=== PATIENT | male | born 1995 | race Caucasian/White ===

== ENCOUNTER 2024-12-08 10:44 | Outpatient (AMB) | payer BC, SELFPAY ==
[2024-12-08 10:47] VITALS: BMI 23.2
--- NOTE | 2024-12-08 10:47 | A.SPINEOV_ITS ---
Vital Signs 12/08/24 10:47 Height 6 ft 1.5 in Weight 178 lb BMI 23.2 Intake Visit Reasons: Bulging disc L5-S1 Intake Note: Mr. Alvarez is here today c/o Low back pain. 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 The symptoms originally started last year on September and October. At that time he was leaning back to crack his back and felt something pop. For few days after he was unable to get out of bed. He started experiencing pain shooting down his left leg as well. He underwent some physical therapy for 3 months and ultimately things seemed to improve somewhat. 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 Along the way, he did have an MRI in July of this year showing a herniated disc on the left at L5-S1. He also had tried a cortisone injection at 1 point which seemed to help the symptoms for 3 weeks. About a month and a half ago, he noticed an abrupt change in the symptoms. Specifically he noticed an increase in the intensity of the pain as well as more tingling of his foot and inability to stand up straight and walk. He has been in excruciating pain over the last month. He has been on gabapentin, tramadol, a leave. He had seen a neurosurgeon and [place] who was recommending microdiskectomy. He wanted to come to our office given our minimally invasive approach to surgical intervention and see if we had any other thoughts on his situation. PMH: He had a lung infection last year which they thought may have been attributed to a trip overseas to [place], he was on antibiotics and that resolved on its own. He has history of anxiety, depression, ADHD. He had elbow surgery for fracture 15 years ago. Other than that he has no systemic disease. Social hx: He quit vaping a few weeks ago, he does smoke marijuana in the evenings, is a social drinker Medications: Vyvanse, Wellbutrin, vitamin-C, vitamin-D, gabapentin, tramadol, Aleve and Advil Allergies: None Physical exam: He is unable to stand up straight, when I watch him walk in the hallway he has an antalgic gait and leans to the left. He has a flexed posture. He is unable to sit for any length of time secondary to pain. He has to lay down flat on his back to relieve the discomfort. He has full strength of bilateral lower extremities but absent reflex in the left Achilles. Imaging review: There is an lumbar MRI image from July of this year done at [facility] showing a small to medium size bulging disc on the left at L5-S1. Impression: 29-year-old male presents with on and off symptoms of a left lumbar radiculopathy over the last year or more consistent with the imaging done at [facility] showing a bulging disc on the left at L5-S1. He was treating that conservatively and had seen some success, but the last month and a half he has had in his significant increase in the pain. He has an absent Achilles reflex in his unable to stand up and walk straight, he has a positive straight leg raise at about 20 degrees. I am concerned that he has herniated the disc further. Because this is a surgical discussion, we need to have a clear understanding of the anatomy and if it has changed since the MRI in July. I am going to order a new lumbar MRI to re-evaluate. We did discuss the natural history of disc herniations, and surgical intervention including microdiskectomy. We discussed success rates which I quoted as 90%. He understands he will be on lifting restrictions for 6 weeks if he has surgery. Once the new MRIs completed I will review with Dr. Mackey and we can coordinate a final plan for him. Thank you for allowing us to care for your patient. The total time spent with this visit with this patient was 45 minutes reviewing history, physical exam, lumbar imaging review, and implementation of treatment plan or further diagnostic testing Jose Mackey MD,PhD [facility] Orders: Orders MR lumbar spine wo con Today M51.26 - Other intervertebral disc displacement, lumbar region Coding Level of Care Code New Pt Level 4 (97858) Diagnoses Lumbar disc herniation M51.26
--- OUTSIDE RECORDS SUMMARY | 2024-12-08 11:44 | XMS_ITS | Clinical Summary ---
Author Organization [facility] Address [address] [place] [address] Care Team Providers Care Personal Driver Name Role Phone Rudy Cui MD Primary Care Provider [phone] Allergies Active Allergy Reactions Criticality Noted Date Comments Coconut Hives 10/16/2023 Medications * This document contains information received from the source organization and may not represent a complete record from that organization. buPROPion XL (WELLBUTRIN XL) 300 mg tablet Take 1 tablet by mouth daily. Active buPROPion XL (WELLBUTRIN XL) 150 mg tablet Take 1 tablet by mouth daily. Active dextroamphetami ne-amphetamine XR (ADDERALL XR) 20 mg capsule Take 20 mg by mouth every morning. Active dextroamphetami ne-amphetamine (ADDERALL) 10 mg tablet Take 10 mg by mouth once a day. Active cloNIDine (CATAPRES) 0.1 mg tablet Take 0.1 mg by mouth once daily as needed. 09/13/2023 Active ascorbic acid (VITAMIN C) 500 mg tablet Take 500 mg by mouth daily. Active albuterol (PROAIR HFA,VENTOLIN HFA) 90 mcg inhaler Inhale 2 puffs by mouth every 4 hours as needed. 09/28/2023 Active b complex vitamins tablet Take 1 capsule by mouth daily. 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 Sex and Gender Information Value Date Recorded Sex Assigned at Male 10/16/2023 9:51 AM EDT Legal Sex Male 4:38 AM EDT Gender Identity Male 10/16/2023 9:51 AM EDT Sexual Orientation Straight 10/16/2023 9: 51 AM EDT Last Filed Vital Signs Vital Sign Reading Time Taken Comments Blood Pressure 117/69 11/13/2023 2:57 PM EDT Pulse 70 11/13/2023 2:57 PM EDT Temperature 36.7 C (98.1 F) 11/13/2023 2:57 PM EDT Respiratory Rate 16 11/13/2023 2:57 PM EDT Oxygen Saturation 97% 11/13/2023 2:57 PM EDT Inhaled Oxygen Concentration - - Weight 80 kg (176 lb 6.4 oz) 11/13/2023 2:57 PM EDT Height 185.4 cm (6' 1 ) 10/16/2023 1:32 PM EDT Body Mass Index 23.27 10/16/2023 1:32 PM EDT Plan of Treatment Health Maintenance Due Date Last Done Comments HIV Screening 1997 Hepatitis C Screening 1997 COVID-19 Vaccine ( season) 2023 04/13/2021, 09/10/2020, 08/13/2020 Alcohol/Substance Use Screening 04/23/2024 Depression Screening and Follow-Up 04/23/2024 Social Drivers of Health Annual Screening 04/23/2024 Influenza Vaccine (#1) 2024 4, 05/08/2012, 03/21/2011, Additional history exists DTaP,Tdap,and Td Vaccines (7 - Td or Tdap) 12/25/2028 12/25/2018, 02/26/2008, 06/18/2001, Additional history exists RSV Vaccine (60+ years old and patients) (1 - 1-dose 75+ series) 01/20/2072 Hepatitis B Vaccines Completed 1997, 1997, 1997 Pneumococcal Vaccine: Pediatric (0-5 Years) and At-Risk Patients (6-50 Years) Aged Out 06/18/2001 No longer eligible based on patient's age to complete this topic Varicella Vaccines Completed 02/26/2008, 06/28/1998 Insurance TB/[facility] HSNO/FREE CARE [facility] HMO/POS Care Teams Personal Driver Relationship Specialty Start Date End Date Rudy Cui MD [address] [place] [phone] PCP - General Internal Medicine 10/15/23
--- OUTSIDE RECORDS SUMMARY | 2024-12-08 11:44 | XMS_ITS | Encounter Summary ---
Author Organization [facility] Address [address] [place] [address] Care Team Providers Care Food Safety Field Specialist Name Role Phone Gonzalo Purcell MD Primary Care Provider Gonzalo Joyner MD Primary Care Provider Shawn Diaz MD Primary Care Provider Unavailab Alex Meza DO Primary Care Provider [phone] Shawn Shin MD Primary Care Provider Unavailab Curtis Daily MD Primary Care Provider [phone] Rudy Cui MD Primary Care Provider [phone] Reason for Referral * CONSULT AND TREATMENT (Routine) - Pend Nurse Review Specialty Diagnoses / Procedures Referred By Contantonina t Referred To Contact Neurology Diagnoses Tremors of nervous system Procedures JULY MELENDEZ NPI : [id number] Gonzalo Purcell MD Sadasivan, Suja, MD [facility] [address] [place] [address] Phone: tel: fax: Referral ID Status Reason Start Date Expiration Date Visits Requested Visits Authorized [id number] Pend Nurse Review Pedi Specialty 07/23/2017 07/23/2017 3 3 Question Answer When do you want this visit to occur? RETRO REFERRAL - appt- 07/23/17 Patient is being referred outside of [facility] for the following reason, however final determination for [id number] requests are made by the Referral Management Department Continuity of active patient care Track Order? No Please provide pertinent patient history. Tremors- pt has not seen Dr. purcell for 2 years- FYi Where is patient being referred? If NOT Other , it qualifies for Meaningful Use, but first look at comment to right to determine if you need to print and have patient sign Release of Info Electronically Letter Other or Decline - Consent is signed Which provider/facility/agency would you like to refer to? count includes the [facility] neuroscience services- [address] [place], [place] tel- [phone] f- Please list the patient's preferred provider for this consult. July Melendez- npi- [phone] Encounter Details Date Type Department Care Team (Late st Contact Info) Description 09/24/2017 Orders Only [facility] [address] [place] [address] Gonzalo Purcell MD Social History Tobacco Use Types Packs/Day Years Used Date Smoking Tobacco: Never Alcohol Use Standard Drinks/Week Comments Not Asked 0 (1 standard drink = 0.6 oz pur e alcohol) Sex and Gender Information Value Date Recorded Sex Assigned at Male 09/03/2023 12:02 PM EDT Legal Sex Male 5:12 AM EDT Gender Identity Male 09/03/2023 12:02 PM EDT Sexual Orientation Straight 09/07/2023 2: 01 PM EDT documented as of this encounter Plan of Treatment Upcoming Encounters Date Type Department Care Team (Latest Contact Info) Description 12/17/2024 10:00 AM EDT Office Visit [facility] [address] [address] Cameron Choudhury NP [address] [address] LBP 6 wk l/s 11/0412/18/2024 1:30 PM EDT Office Visit [facility] [address] 123 [facility] [address] [place] [address] Michael Fulton MD [address] [place] [address] f/u back pain..l/s 5.6.25..inj verbiage advised 07/29/2025 11:20 AM EDT CPE - Comprehensive Physical Exam [facility] Medicine [address] [place] [phone] Eunice Wilson, LEXIE [address] [place] [address] las cpe 10/18/21 Scheduled Referrals Name Type Priority Associated Diagnoses Orde r Schedule CONSULT NEUROLOGY NON-FC Referral Routine Tremors of nervous system Ordered: 09/24/2017 documented as of this encounter Visit Diagnoses Diagnosis Tremors of nervous system Abnormal involuntary movements documented in this encounter Care Teams Food Safety Field Specialist Relationship Specialty Start Date End Date Gonzalo Purcell MD PCP - General 07/15/05 09/24/17 Gonzalo Purcell MD PCP - General Pediatrics 09/27/17 09/27/17 Shawn Shin MD PCP - General Internal Medicine 12/28/17 10/08/18 Alex Bui DO PCP - General 10/09/18 11/25/18 Shawn Shin MD PCP - General Internal Medicine 11/26/18 03/22/22 Curtis Godinez MD [address] [place] [address] PCP - General 03/23/22 09/02/23 Rudy Cui MD [address] [place] [phone] PCP - General Internal Medicine 09/03/23 documented as of this encounter
--- OUTSIDE RECORDS SUMMARY | 2024-12-08 11:44 | XMS_ITS | Patient Health Record ---
Author Organization [facility] [employer] [facility] Address [address] [address] Care Team Providers Care Products Mechanical Design Engineer Name Role Phone Ailyn Gonzalo Primary Care Provider Unavailab luci FelixGAGE Unavailable [phone] Juan Francisco Natarajan Unavailable Unavailable Reason For Referral No Information Medications Medication SIG (Take, Route, Frequency, Duration) Notes Start Date End Date Status Azithromycin 250 MG 2 tablets on the day, then 1 tablet daily thereafter Orally Once a day Active buPROPion HCl ER (XL) 150 MG 1 tablet in the morning Orally Once a day Active Albuterol Sulfate HFA 108 (90 Base) MCG/ACT 2 puffs as needed Inhalation every 6 hrs Active buPROPion HCl ER (XL) 300 MG 1 tablet in the morning Orally Once a day Active Social History Tobacco Use: Social History Observation Description Date Details (start date - stop date) Never Smoker NA - NA Tobacco Use/Smoking Question Answer Notes Are you a nonsmoker Problems Problem Type SNOMED Code ICD Code Onset Dates Problem Status W/U Status Risk Notes Problem Anxiety (37766415) Anxiety (F41.9) Active confirmed Problem Tremor (74513509) Tremor (R25.1) Active confirmed Problem Generalized anxiety disorder (61353457) JOSUE (generalized anxiety disorder) (F41.1) Active confirmed Problem Recurrent major depression (95185601) Recurrent major depressive disorder, remission status unspecified (F33.9) Active confirmed Problem Tension-type headache (726719213) Tension-type headache, not intractable, unspecified chronicity pattern (G44.209) Active confirmed Plan Of Treatment No Information Insurance Providers Payer Name Payer Address Payer Phone Subscriber Number Group Number Insured Name Patient Relationship to Insured Coverage Start Date Coverage End Date [facility] [address] [place] [address] [id number] Yoshi Locke Self - patient is the insured Medical (General) History Medical History History ICD Code Tension-type headache, not intractable, unspecified chronicity pattern JOSUE (generalized anxiety disorder) Recurrent major depressive disorder, rem ission status unspecified Recurrent major depressive disorder, rem ission status unspecified
== END 2024-12-08 11:44 | disposition home or self-care (01) ==
LOC: HO.HNS 10:44
PROVIDERS: Visit Provider Physician Assistant
DX: M51.26 Other intervertebral disc displacement, lumbar region (principal)
CPT/HCPCS: 99204

== ENCOUNTER 2024-12-26 09:33 | Outpatient (AMB) | payer BC, SELFPAY ==
[2024-12-26 10:01] VITALS: BMI 23.7
--- NOTE | 2024-12-26 10:01 | HO.SPINEOV ---
Vital Signs 12/26/24 10:01 Height 6 ft 1 in Weight 180 lb BMI 23.7 Intake Visit Reasons: surgical discussion Intake Note: Mr. Locke is here today to Discuss Surgery. Newspaper Subscription Solicitor Required: No Allergies coconut Allergy (Intermediate, Verified 12/08/24 10:48) Hives Physical Exam Vital Signs: BMI result Body Mass Index 23.7 Assessment & Plan Assessment & Plan (1) Lumbar disc herniation: Code(s): M51.26 - Other intervertebral disc displacement, lumbar region Category: Medical Plan Mr Locke is here in follow-up. His MRI done at [facility] shows that he has a recurrent larger disc herniation than the 1 previously seen on his studies done at [facility]. Dr. Mackey and I sat down with him and reviewed his situation again. He has severe left leg pain which is making him basically immobile, he is seeing some atrophy of his left calf, he has mild weakness in an Achilles reflexes absent. We believe that he is a good candidate for left L5-S1 microdiskectomy. We quoted success rate at 90%. We have tentatively planned in January 07. The patient was given risk and benefits of surgery including but not limited to infection, hematoma, nerve injury, durotomy, weakness, bowel/bladder injury, persistent pain, recurrent disc herniation. We also discussed the option to continue with conservative treatment and patient wishes to proceed with surgery. They are aware they should stop NSAIDs 7 days prior to surgery. All questions were answered to the best of our ability. If there is anything about this patients medical history that we have overlooked or concerns you have about us proceeding with surgery we would appreciate any input you can offer Total amount of time spent in this visit was 20 minutes in discussion of symptoms, lumbar MRI imaging results and subsequent plan of care Jose Mackey MD,PhD [facility] Coding Level of Care Code Est Pt Level 3 (62308) Diagnoses Lumbar disc herniation M51.26
--- OUTSIDE RECORDS SUMMARY | 2024-12-26 10:15 | XMS_ITS | Encounter Summary ---
Author Organization [facility] Address [address] [place] [address] Care Team Providers Care Remelt Sugar Boiler Name Role Phone Gonzalo Purcell MD Primary Care Provider Gonzalo Joyner MD Primary Care Provider Shawn Diaz MD Primary Care Provider Unavailab Alex Meza DO Primary Care Provider [phone] Shawn Shin MD Primary Care Provider Unavailab Curtis Daily MD Primary Care Provider [phone] Rudy Cui MD Primary Care Provider Reason for Referral * CONSULT AND TREATMENT (Routine) - Pend Nurse Review Specialty Diagnoses / Procedures Referred By Contantonina t Referred To Contact Neurology Diagnoses Tremors of nervous system Procedures JULY STOVER NPI : [id number] Gonzalo Purcell MD Sadasivan, Suja, MD [facility] [address] [place] [address] Phone: tel: fax: Referral ID Status Reason Start Date Expiration Date Visits Requested Visits Authorized [id number] Pend Nurse Review Pedi Specialty 07/23/2017 07/23/2017 3 3 Question Answer When do you want this visit to occur? RETRO REFERRAL - appt- 07/23/17 Patient is being referred outside of [facility] for the following reason, however final determination for [id number] requests are made by the Referral Management [...] provider/facility/agency would you like to refer to? [facility]- [address], [place] tel- [phone] f- [phone] Please list the patient's preferred provider for this consult. July Espinosatatyerika- npi- [id number] Encounter Details Date Type Department Care Team (Late st Contact Info) Description 09/24/2017 Orders Only [facility] [address] [place] [address] Gonzalo Purcell MD Social History Tobacco Use [...] Department Care Team (Latest Contact Info) Description 07/29/2025 11:20 AM EDT CPE - Comprehensive Physical Exam [facility] [address] [place] [phone] Eunice Wilson NP [address] [place] [address] pat cpe 10/18/21 Scheduled Referrals Name Type Priority Associated Diagnoses Orde r Schedule CONSULT NEUROLOGY NON-FC Referral Routine Tremors of nervous system Ordered: 09/24/2017 documented as of this encounter Visit Diagnoses Diagnosis Tremors of nervous system Abnormal involuntary movements documented in this encounter Care Teams Remelt Sugar Boiler Relationship Specialty Start Date End Date Gonzalo Purcell MD PCP - General 07/15/05 09/24/17 Gonzalo Purcell MD PCP - General Pediatrics 09/27/17 09/27/17 Shawn Shin MD PCP - General Internal Medicine 12/28/17 10/08/18 Alex Bui DO PCP - General 10/09/18 11/25/18 Shawn Shin MD PCP - General Internal Medicine 11/26/18 03/22/22 Curtis Godinez MD [address] [place] [address] PCP - General 03/23/22 09/02/23 Rudy Cui MD [address] [place] [phone] PCP - General Internal Medicine 09/03/23 documented as of this encounter
--- OUTSIDE RECORDS SUMMARY | 2024-12-26 10:15 | XMS_ITS | Encounter Summary ---
Author Organization [facility] Address [address] [place] [address] Care Team Providers Care Hand Ii Blocker Name Role Phone Shawn Shin MD Primary Care Provider Unavailab Alex Meza DO Primary Care Provider [phone] Shawn Shin MD Primary Care Provider Unavailab Curtis Daily MD Primary Care Provider [phone] Rudy Cui MD Primary Care Provider [phone] Reason for Visit * Reason Comments E-prescribing Refill Request Encounter Details Date Type Department Care Team (Late st Contact Info) Description 03/05/2018 Refill [facility] [address] [place] [address] Shawn Shin MD E-prescribing Refill Request Social History Tobacco Use Types Packs/Day Years Used Date Smoking Tobacco: Never Smokeless Tobacco: Never Alcohol Use Standard Drinks/Week Comments Not Asked 0 (1 standard drink = 0.6 oz pur e alcohol) Sex and Gender Information Value Date Recorded Sex Assigned at Male 09/03/2023 12:02 PM EDT Legal Sex Male 5:12 AM EDT Gender Identity Male 09/03/2023 12:02 PM EDT Sexual Orientation Straight 09/07/2023 2: 01 PM EDT documented as of this encounter Miscellaneous Notes * Telephone Encounter - Margaret Gilmore - 03/05/2018 9:23 AM EST Any special requests or concerns? none Faxed/E-prescribed medication renewal request(s) for Yoshi Locke 23 y.o. male received from pharmacy. Verified and Confirmed pharmacy for patient. Last CPE with this specialty: 06/24/2014 Last OV with this specialty: 02/04/2016 Next OV: Future Appointments Date Time Provider Department Phone 03/21/18 1:40 PM Shawn Shin MD [facility] [phone] Pertinent lab results: No labs suggested for any medication orders signed or pended in this encounter. Refresh if any orders changed. Allergies: Review of patient's allergies indicates no known allergies. BP Readings from Last 1 Encounters: 09/27/17 130/78 Patient Active Problem List Diagnosis Date Noted ??? Mononucleosis syndrome 09/18/2016 09/06/2016. Monospot positive. WBC 9.8 with 31% atypical lymphs. ??? Episodic tension-type headache, not intractable 02/20/2016 ??? Recurrent major depressive disorder (HCC) 02/04/2016 ??? JOSUE (generalized anxiety disorder) 06/24/2014 ??? Routine health maintenance 03/15/2010 Current Outpatient Prescriptions on File Prior to Visit Medication Sig Dispense Refill ??? BuPROPion HCl 300 MG TABLET SR 24 HR 1 TABLET DAILY in the morning 30 Tab 1 ??? BuPROPion HCl 150 MG TABLET SR 24 HR 1 TABLET DAILY in the morning 30 Tab 1 ??? ALBUTEROL SULFATE 108 (90 BASE) MCG/ACT Aero Soln 2 puffs every 4 hours as needed for cough/bronchospasm 1 Inhaler 0 ??? Azithromycin 250 MG Tab 2 Tablets today, then 1 tablet daily thereafter 6 Tab 0 ??? BuPROPion HCl 200 MG TABLET SR 12 HR 1 TABLET DAILY documented in this encounter Plan of Treatment Upcoming Encounters Date Type Department Care Team (Latest Contact Info) Description 07/29/2025 11:20 AM EDT CPE - Comprehensive Physical Exam [facility] [address] [place] [phone] Eunice Wilson NP [address] [place] [address] pat cpe 10/18/21 documented as of this encounter Visit Diagnoses Diagnosis Recurrent major depressive disorder, remission status unspecified JOSUE (generalized anxiety disorder) Generalized anxiety disorder documented in this encounter Care Teams Hand Ii Blocker Relationship Specialty Start Date End Date Shawn Shin MD PCP - General Internal Medicine 12/28/17 10/08/18 Alex Bui DO PCP - General 10/09/18 11/25/18 Shawn Shin MD PCP - General Internal Medicine 11/26/18 03/22/22 Curtis Godinez MD [address] [place] [address] PCP - General 03/23/22 09/02/23 Rudy uCi MD [address] [place] [phone] PCP - General Internal Medicine 09/03/23 documented as of this encounter
--- OUTSIDE RECORDS SUMMARY | 2024-12-26 10:15 | XMS_ITS | Clinical Summary ---
Author Organization [facility] Address [address] [place] [address] Care Team Providers Care Department Clinician Name Role Phone Rudy Cui MD Primary Care Provider [phone] Allergies Active Allergy Reactions Criticality Noted Date [...] HIV Screening 1997 Hepatitis C Screening 1997 Alcohol/Substance Use Screening 04/23/2024 Depression Screening and Follow-Up 04/23/2024 Social Drivers of Health Annual Screening 04/23/2024 COVID-19 Vaccine ( - season) 2024 04/13/2021, 09/10/2020, 08/13/2020 Influenza Vaccine (#1) 2024 4, 05/08/2012, 03/21/2011, [...] Completed 02/26/2008, 06/28/1998 Insurance TB/[place] HSNO/FREE CARE [facility] HMO/POS Care Teams Department Clinician Relationship Specialty Start Date End Date Rudy Cui MD [address] [place] [phone] PCP - General Internal Medicine 10/15/23
--- OUTSIDE RECORDS SUMMARY | 2024-12-26 10:15 | XMS_ITS | Encounter Summary ---
Author Organization [facility] Address [address] [place] [address] Care Team Providers Care Foam Rubber Curer Name Role Phone Gonzalo Robertson MD Primary Care Provider Gonzalo Joyner MD Primary Care Provider Shawn Diaz MD Primary Care Provider Unavailab Alex Meza DO Primary Care Provider [phone] Shawn Shin MD Primary Care Provider Unavailab Curtis Daily MD Primary Care Provider [phone] Rudy Cui MD Primary Care Provider [phone] Reason for Visit * Reason Comments Unable To Schedule Encounter Details Date Type Department Care Team ([facility] st Contact Info) Description 03/29/2016 Telephone 300 [facility] Magnetic Resonance Imaging [address] [place] [address] Tana Jackson, LEXIE [address] [facility] [address] [place], [place] [phone] Unable To Schedule Social History Tobacco Use Types Packs/Day Years [...] encounter Miscellaneous Notes * Telephone Encounter - Dee Snyder - 03/29/2016 1:18 PM EST This is to inform you that we have been unable to reach this patient to schedule his appointment for a mra head to evaluate for Pt with headaches, often w/ confusion. We have made attempts to schedule this patient by PHONE. We are asking for your assistance in contacting this patient to ensure their exam is scheduled in a timely fashion. Thank you, Radiology Scheduling Dept. documented in this encounter Plan of Treatment Upcoming Encounters Date Type Department Care Team (Latest Contact Info) Description 07/29/2025 11:20 AM EDT CPE - Comprehensive Physical Exam [facility] Adult Medicine [address] [place] [phone] Eunice Wilson NP [address] [place] [phone] las cpe 10/18/21 documented as of this encounter Visit Diagnoses Not on filedocumented in this encounter Care Teams Foam Rubber Curer Relationship Specialty Start Date End Date Gonzalo Robertson MD PCP - General 07/15/05 09/24/17 Gonzalo Robertson MD PCP - General Pediatrics 09/27/17 09/27/17 Shawn Shin MD PCP - General Internal Medicine 12/28/17 10/08/18 Alex Bui DO PCP - General 10/09/18 11/25/18 Shawn Shin MD PCP - General Internal Medicine 11/26/18 03/22/22 Curtis Godinez MD [address] [place] [address] PCP - General 03/23/22 09/02/23 Rudy Cui MD [address] [place] [address] PCP - General Internal Medicine 09/03/23 documented as of this encounter
--- OUTSIDE RECORDS SUMMARY | 2024-12-26 10:15 | XMS_ITS | Encounter Summary ---
Author Organization [facility] Address [address] [place] [address] Care Team Providers Care Auditing Manager Name Role Phone Gonzalo Robertson MD Primary Care Provider Gonzalo Joyner MD Primary Care Provider Shawn Diaz MD Primary Care Provider Unavailab Alex Meza DO Primary Care Provider [phone] Shawn Shin MD Primary Care Provider Unavailab Curtis Daily MD Primary Care Provider Rudy Cui MD Primary Care Provider [phone] Encounter Details Date Type Department Care Team (Late st Contact Info) Description 05/12/[address] [facility] Magnetic Resonance Imaging [address] [place] [phone] Tana Jackson, LEXIE [address] [facility] [address] [place] [address] Social History Tobacco Use Types Packs/Day Years [...] Notes * Telephone Encounter - Dee Snyder 05/12/2016 11:05 AM EST This is to inform you that this patient did not schedule his appointment for a mra head to evaluatefor Pt with headaches, often w/ confusion, can be triggered by exercise. We made 3 telephone attempts to schedule this appointment with him directly, including mailing a letter to the patient on 03/29/16 . We had also messaged your office on 03/29/16 to help intervene. We informed the patient in the letter to contact your office if they would like to have this exam performed at a later time. We have removed your order in Epic at this time. Please submit a new order if this exam is needed at a future date. Thank you. documented in this encounter Plan of Treatment Upcoming Encounters Date Type Department Care Team (Latest Contact Info) Description 07/29/2025 11:20 AM EDT CPE - Comprehensive Physical Exam [facility] Adult Medicine [address] [place] [phone] Eunice Wilson NP [address] [place] [address] las cpe 10/18/21 documented as of this encounter Visit Diagnoses Not on filedocumented in this encounter Care Teams Auditing Manager Relationship Specialty Start Date End Date Gonzalo Robertson MD PCP - General 07/15/05 09/24/17 Gonzalo Robertson MD PCP - General Pediatrics 09/27/17 09/27/17 Shawn Shin MD PCP - General Internal Medicine 12/28/17 10/08/18 Alex Bui DO PCP - General 10/09/18 11/25/18 Shawn Shin MD PCP - General Internal Medicine 11/26/18 03/22/22 Curtis Godinez MD [address] [place] [address] PCP - General 03/23/22 09/02/23 Rudy Cui MD [address] [place] [phone] PCP - General Internal Medicine 09/03/23 documented as of this encounter
--- OUTSIDE RECORDS SUMMARY | 2024-12-26 10:16 | XMS_ITS | Patient Health Record ---
Author Organization [facility] [employer] [facility] [employer] Address [address] [address] Care Team Providers Care Kennel Technician Name Role Phone Ailyn Gonzalo Primary Care Provider Unavailab luci FelixGAGE Unavailable [phone] Juan rFancisco Natarajan Unavailable Unavailable Reason For Referral No [...] Status W/U Status Risk Notes Problem Anxiety (16665460) Anxiety (F41.9) Active confirmed Problem Tremor (75100512) Tremor (R25.1) Active confirmed Problem Generalized anxiety disorder (23040886) JOSUE (generalized anxiety disorder) (F41.1) Active confirmed Problem Recurrent major depression (85882365) Recurrent major depressive disorder, remission status unspecified (F33.9) Active confirmed Problem Tension-type headache (848531915) Tension-type headache, not intractable, unspecified chronicity pattern (G44.209) Active confirmed Plan Of Treatment No Information Insurance Providers Payer Name Payer Address Payer Phone Subscriber Number Group Number Insured Name Patient Relationship to Insured Coverage Start Date Coverage End Date [facility] [address] [place] [address] [id number] Yoshi Locke Self - patient is the insured Medical (General) History Medical History History ICD Code Tension-type headache, not intractable, unspecified chronicity pattern JOSUE (generalized anxiety disorder) Recurrent major depressive disorder, rem ission status unspecified Recurrent major depressive disorder, rem ission status unspecified
--- OUTSIDE RECORDS SUMMARY | 2024-12-26 10:16 | XMS_ITS | Encounter Summary ---
Author Organization [facility] Address [address] [place] [address] Care Team Providers Care Hand Zipper Trimmer Name Role Phone Shawn Shin MD Primary Care Provider Unavailab Curtis Daily MD Primary Care Provider [phone] Rudy Cui MD Primary Care Provider [phone] Encounter Details Date Type Department Care Team (Late st Contact Info) Description 09/28/2021 Orders Only [facility] [address] [place] [phone] Shawn Shin MD Social History Tobacco Use Types Packs/Day Years Used Date Smoking Tobacco: Never Smokeless Tobacco: Never Alcohol Use Standard Drinks/Week Comments Not Asked 0 (1 standard drink = 0.6 oz pur e alcohol) PHQ-2 Answer Date Recorded PHQ-2 Score 2 01/18/2019 Sex and Gender Information Value Date Recorded [...] AM EDT CPE - Comprehensive Physical Exam [facility] Adult Medicine [address] [place] [phone] Eunice Wilson NP [address] [place] [phone] pat ribera 10/18/21 documented as of this encounter Procedures * Due to [facility] law, this organization might not be sharing negative HIV tests. Procedure Name Priority Date/Time Associated Diagnosis Comments PAIN MANAGEMENT PROFILE WITH FENTANYL, URINE (PAINM2+) Routine 09/28/2021 3:26 PM EDT Attention deficit hyperactivity disorder (ADHD), other type documented in this encounter Results * Due to [place] [employer] law, this organization might not be sharing negative HIV tests. * (ABNORMAL) PAIN MANAGEMENT PROFILE WITH FENTANYL, URINE (PAINM2+) (09/28/2021 3:26 PM EDT) Fentanyl Screen (Urine) NEGATIVE <0.5 ng/mL [facility] Comment:See Note 1 COMMENT SEE NOTE [facility] Comment:See Note 2 Creatinine (Urine) 53.5 > or = 20.0 mg/dL [facility] pH (Urine) 6.9 4.5 - 9.0 [facility] OXIDANT NEGATIVE <200 mcg/mL [facility] Amphetamines (Screen) NEGATIVE <500 ng/mL [facility] Barbiturates (Urine) NEGATIVE <300 ng/mL [facility] Benzodiazepine And Metabolites, Urine NEGATIVE <100 ng/mL [facility] Buprenorphine (Suboxone) (Urine) NEGATIVE <5 ng/mL [facility] Benzoylecgonine (Cocaine Metabolite) (Urine) NEGATIVE <150 ng/mL [facility] 6-Monoacetylmorphine (Heroin Metabolite) (Urine) NEGATIVE <10 ng/mL [facility] Tetrahydrocannabinol (Urine) POSITIVE(A) <20 ng/mL [facility] Tetrahydrocannabinol (Urine) 71(H) <5 ng/mL [facility] Comment:See Note 1 MDMA/MDA NEGATIVE <500 ng/mL [facility] EDDP ( Methadone Metabolite) NEGATIVE <100 ng/mL [facility] Opiates (Urine) NEGATIVE <100 ng/mL [facility] Oxycodone (Urine) NEGATIVE <100 ng/mL [facility] Phencyclidine (Urine) NEGATIVE <25 ng/mL [facility] COMMENT SEE NOTE [facility] Comment: See Note 2 Note 1 This test was developed and its analytical performance characteristics have been determined by [facility]. It has not been cleared or approved by the FDA. This assay has been validated pursuant to the CLIA regulations and is used for clinical purposes. Note 2 This drug testing is for medical treatment only. Analysis was performed as non-forensic testing and these results should be used only by healthcare providers to render diagnosis or treatment, or to monitor progress of medical conditions. For assistance with interpreting these drug results, please contact a [facility] Toxicology Specialist: [phone] ( ), M-F, 8am-6pm EST. 09/28/2021 3:26 PM EDT 09/29/2021 9:17 AM EDT Narrative Resulting Agency Comment [id number] us Shawn Shin MD LABORATORY Final Result [facility] [address] [place] [address] documented in this encounter Visit Diagnoses Diagnosis Attention deficit hyperactivity disorder (ADHD), other type documented in this encounter Care Teams Hand Zipper Trimmer Relationship Specialty Start Date End Date Shawn Shin MD PCP - General Internal Medicine 11/26/18 03/22/22 Curtis Godinez MD [address] [place] [address] PCP - General 03/23/22 09/02/23 Rudy Cui MD [address] [place] [phone] PCP - General Internal Medicine 09/03/23 documented as of this encounter
--- OUTSIDE RECORDS SUMMARY | 2024-12-26 10:16 | XMS_ITS | Encounter Summary ---
Author Organization [facility] Address [address] [place] [address] Care Team Providers Care Line Dancer Name Role Phone Rudy Cui MD Primary Care Provider [phone] Encounter Details Date Type Department Care Team (Late st Contact Info) Description 09/29/2023 Orders Only [facility] Pulmonary [address] [place] [address] Jessie Hoyos MD [address] [facility] [address] [place] [address] Social History Tobacco Use Types Packs/Day Years Used Date Smoking Tobacco: Never Passive Smoke Exposure: Past Smokeless Tobacco: Never Comments:past nicotine vapin g (x 2 months) Alcohol Use Standard Drinks/Week Comments Yes 0 (1 standard drink = 0.6 oz pur e alcohol) very rarely PHQ-2 Answer Date Recorded PHQ-2 Score 2 01/18/2019 Intimate Partner Violence Answer Date R ecorded Fear of Current or Ex-Partner Not on file Emotionally Abused Not on file 12/06/2022 Physically Abused Not on file 12/06/2022 Sexually Abused Not on file 12/06/2022 Feel Safe at Home Not on file 12/06/2022 Sex and Gender Information Value Date Recorded Sex Assigned at Male 09/03/2023 12:02 PM EDT Legal Sex Male 5:12 AM EDT Gender Identity Male 09/03/2023 12:02 PM EDT Sexual Orientation Straight 09/07/2023 2: 01 PM EDT 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 Adult Medicine [address] [place] [phone] Eunice Wilson NP [address] [place] [address] las cpe 10/18/21 documented as of this encounter Procedures * Due to [employer] law, this organization might not be sharing negative HIV tests. Procedure Name Priority Date/Time Associated Diagnosis Comments URINALYSIS DIP W/ REFLEX TO MICROSCOPIC+CULTURE Routine 09/29/2023 1:32 PM EDT Hemoptysis Weight loss Fever, unspecified fever cause Abnormal chest CT CULTURE, URINE, ROUTINE Routine 09/29/2023 1:32 PM EDT Hemoptysis Weight loss Fever, unspecified fever cause Abnormal chest CT CULTURE, SPUTUM WITH GRAM STAIN Routine 09/29/2023 1:32 PM EDT Hemoptysis documented in this encounter Results * Due to [place] [employer] law, this organization might not be sharing negative HIV tests. * CULTURE, SPUTUM WITH GRAM STAIN (09/29/2023 1:32 PM EDT) Bacteria culture (Sputum) SEE NOTE [facility] Comment: CULTURE, SPUTUM/LOWER RESPIRATORY Micro Number: [id number] Test Status: Final Specimen Source: Sputum Specimen Quality: Adequate Gram Stain: No white blood cells seen No epithelial cells seen Mixed bacterial morphotypes present, none predominant. Result: Growth of normal oropharyngeal erich. 09/29/2023 1:32 PM EDT 09/29/2023 8:29 PM EDT Narrative Resulting Agency Comment [id number] October [facility] Final Result [facility] [address] [place] [address] * CULTURE, URINE, ROUTINE (09/29/2023 1:32 PM EDT) Bacteria culture (Urine) SEE NOTE [facility] Comment: CULTURE, URINE, ROUTINE Micro Number: [id number] Test Status: Final Specimen Source: Not given Specimen Quality: Adequate Result: No Growth 09/29/2023 1:32 PM EDT 09/29/2023 8:29 PM EDT Narrative Resulting Agency Comment [id number] October [facility] Final Result Performing Organization Address [facility] de Phone Number [facility] [address] [place] [address] * URINALYSIS DIP W/ REFLEX TO MICROSCOPIC+CULTURE (09/29/2023 1:32 PM EDT) Color (Urine) YELLOW YELLOW [facility] Appearance (Urine) CLEAR CLEAR [facility] Specific gravity (Urine) 1.009 1.001 - 1.035 [facility] pH (Urine) 5.5 5.0 - 8.0 [facility] Glucose (Urine) NEGATIVE NEGATIVE [facility] Bilirubin (Urine) NEGATIVE NEGATIVE [facility] Ketones (Urine) NEGATIVE NEGATIVE [facility] Hemoglobin (Urine) NEGATIVE NEGATIVE [facility] Protein (Urine) NEGATIVE NEGATIVE [facility] Nitrite (Urine) NEGATIVE NEGATIVE [facility] Leukocyte esterase (Urine) NEGATIVE NEGATIVE [facility] 09/29/2023 1:32 PM EDT 09/29/2023 8:29 PM EDT Narrative Resulting Agency Comment [id number] October [facility] Final Result Performing Organization Address [facility] de Phone Number [facility] [address] [place] [address] documented in this encounter Visit Diagnoses Diagnosis Hemoptysis Weight loss Loss of weight Fever, unspecified fever cause Abnormal chest CT Nonspecific (abnormal) findings on radiological and other examination of other intrathoracic organs documented in this encounter Care Teams Line Dancer Relationship Specialty Start Date End Date Rudy Cui MD [address] [place] [phone] PCP - General Internal Medicine 09/03/23 documented as of this encounter
--- OUTSIDE RECORDS SUMMARY | 2024-12-26 10:16 | XMS_ITS | Encounter Summary ---
Author Organization [facility] Address [address] [place] [address] Care Team Providers Care 4Th Grade Math Teacher Name Role Phone Shawn Shin MD Primary Care Provider Unavailab Curtis Daily MD Primary Care Provider [phone] Rudy Cui MD Primary Care Provider [phone] Reason for Visit * Reason Comments CPE/Physical Encounter Details Date Type Department Care Team (Late st Contact Info) Description 10/20/2021 Telephone [facility] [address] [place] [phone] Shawn Shin MD CPE/Physical Social History Tobacco Use Types Packs/Day Years Used Date Smoking Tobacco: Never Smokeless Tobacco: Never Alcohol Use Standard Drinks/Week Comments Yes 0 [...] encounter Miscellaneous Notes * Telephone Encounter - Josseline Sahu - 10/20/2021 8:37 AM EDT Per check out notes: Return in about 1 year (around 10/18/2022) for CPE, or sooner pending results, or sooner as needed. [employer] message sent to pt documented in this encounter Plan of Treatment Upcoming Encounters Date Type Department Care Team (Latest Contact Info) Description 07/29/2025 11:20 AM EDT CPE - Comprehensive Physical Exam [facility] Adult Medicine [address] [place] [phone] Eunice Wilson NP [address] [place] [phone] las cpe 10/18/21 documented as of this encounter Visit Diagnoses Not on filedocumented in this encounter Care Teams 4Th Grade Math Teacher Relationship Specialty Start Date End Date Shawn Shin MD PCP - General Internal Medicine 11/26/18 03/22/22 Curtis Godinez MD [address] [place] [address] PCP - General 03/23/22 09/02/23 Rudy Cui MD [address] [place] [phone] PCP - General Internal Medicine 09/03/23 documented as of this encounter
--- OUTSIDE RECORDS SUMMARY | 2024-12-26 10:16 | XMS_ITS | Encounter Summary ---
Author Organization [facility] Address [address] [place] [address] Care Team Providers Care Spanish Literature Professor Name Role Phone Gonzalo Robertson MD Primary Care Provider Gonzalo Joyner MD Primary Care Provider Shawn Diaz MD Primary Care Provider Unavailab Alex Meza DO Primary Care Provider [phone] Shawn Shin MD Primary Care Provider Unavailab Curtis Daily MD Primary Care Provider [phone] Rudy Cui MD Primary Care Provider [phone] Encounter Details Date Type Department Care Team (Late st Contact Info) Description 02/04/2016 [facility] Only [facility] [address] [place] [address] Gonzalo Robertson MD Social History Tobacco Use Types Packs/Day [...] PM EDT documented as of this encounter Progress Notes * Gonzalo Robertson MD - 02/05/2016 10:08 AM EDTQuick Note: See OV Note dated 02/04/2016 for disposition. documented in this encounter Plan of Treatment Upcoming Encounters Date Type Department Care Team (Latest Contact Info) Description 07/29/2025 11:20 AM EDT CPE - Comprehensive Physical Exam [facility] Adult Medicine [address] [place] [phone] Eunice Wilson NP [address] [place] [address] las cpe 10/18/21 documented as of this encounter Procedures * Due to [facility] law, this organization might not be sharing negative HIV tests. Procedure Name Priority Date/Time Associated Diagnosis Comments CBC INCLUDES DIFFERENTIAL AND PLATELET COUNT Routine 02/04/2016 5:02 PM EDT Headache, unspecified headache type TSH, 3RD GENERATION Routine 02/04/2016 5 :02 PM EDT Headache, unspecified headache type T4, FREE, SERUM Routine 02/04/2016 5:02 PM EDT Headache, unspecified headache type CORTISOL, BASELINE SPECIMEN, SERUM Routine 02/04/2016 5:02 PM EDT Headache, unspecified headache type BASIC METABOLIC PANEL WITH (GFR) Routine 02/04/2016 5:02 PM EDT Headache, unspecified headache type documented in this encounter Results * Due to [facility] law, this organization might not be sharing negative HIV tests. * CORTISOL, BASELINE SPECIMEN, SERUM (02/04/2016 5:02 PM EDT) Cortisol 13.5 mcg/dL [facility] Comment: {CORTISOL, TOTAL {[id number]) Reference Range: For 8 a.m.(7-9 a.m.) Specimen: 4.0-22.0 Reference Range: For 4 p.m.(3-5 p.m.) Specimen: 3.0-17.0 * Please interpret above results accordingly * 02/04/2016 5:02 PM EDT 02/04/2016 10:18 PM EDT Narrative Resulting Agency Comment [id number] us Gonzalo Robertson MD LABORATORY Final Result [facility] [address] [place] [address] * CBC INCLUDES DIFFERENTIAL AND PLATELET COUNT (02/04/2016 5:02 PM EDT) WBC 5.1 3.8 - 10.8 Thousand/u L [facility] Comment:{WHITE BLOOD CELL CO UNT {[id number]) RBC 5.04 4.20 - 5.80 Million/uL [facility] Comment:{RED BLOOD CELL COUN T {[id number]) Hemoglobin 15.2 13.2 - 17.1 g/dL [facility] Comment:{HEMOGLOBIN {[id number]) Hematocrit 44.9 38.5 - 50.0 % [facility] Comment:{HEMATOCRIT {[id number]) MCV 89.1 80.0 - 100.0 fL [facility] Comment:{MCV {[id number]) MCH 30.1 27.0 - 33.0 pg [facility] Comment:{MCH {[id number]) MCHC 33.8 32.0 - 36.0 g/dL [facility] Comment:{MCHC {[id number]) RDW 13.2 11.0 - 15.0 % [facility] Comment:{RDW {[id number]) PLT 196 140 - 400 Thousand/u L [facility] Comment:{PLATELET COUNT {[id number]) MPV 8.8 7.5 - 11.5 fL [facility] Comment:{MPV {[id number]) Neutrophils # 2989 1500 - 7800 cells/uL [facility] Comment:{ABSOLUTE NEUTROPHIL S {[id number]) Lymphocytes # 1387 850 - 3900 cells/uL [facility] Comment:{ABSOLUTE LYMPHOCYTE S {[id number]) Monocytes # 515 200 - 950 cells/uL [facility] Comment:{ABSOLUTE MONOCYTES {[id number]) Eosinophils # 168 15 - 500 cells/uL [facility] Comment:{ABSOLUTE EOSINOPHIL S {[id number]) Basophils # 41 0 - 200 cells/uL [facility] Comment:{ABSOLUTE BASOPHILS {[id number]) Neutrophils % 58.6 % [facility] Comment:{NEUTROPHILS {[id number]) Lymphocytes % 27.2 % [facility] Comment:{LYMPHOCYTES {[id number]) Monocytes % 10.1 % [facility] Comment:{MONOCYTES {[id number]) Eosinophils % 3.3 % [facility] Comment:{EOSINOPHILS {[id number]) Basophils % 0.8 % [facility] Comment:{BASOPHILS {[id number]) 02/04/2016 5:02 PM EDT 02/04/2016 10:18 PM EDT Narrative Resulting Agency Comment [id number] us Gonzalo Robertson MD LAB SAME DAY RESULT Final Res ult [facility] [address] [place] [address] * BASIC METABOLIC PANEL WITH (GFR) (02/04/2016 5:02 PM EDT) Glucose 80 65 - 99 mg/dL [facility] Comment: {GLUCOSE {[id number]) Fasting reference interval Urea Nitrogen Blood (BUN) 17 7 - 20 mg/dL [facility] Comment:{UREA NITROGEN (BUN) {[id number]) Creatinine 1.05 0.60 - 1.26 mg/dL [facility] Comment:{CREATININE {[id number]) GFR 102 > OR = 60 mL/min/1. 73m2 [facility] Comment:{eGFR NON-AFR. AMERI CAN {[id number]) GFR () 119 > OR = 60 mL/min/1. 73m2 [facility] Comment:{eGFR AMERIC AN {[id number]) BUN/Creatinine Ratio NOT APPLICABLE 6 - 22 (calc) [facility] Comment:{BUN/CREATININE RATI O {[id number]) Sodium 141 135 - 146 mmol/L [facility] Comment:{SODIUM {[id number]) Potassium 4.4 3.8 - 5.1 mmol/L [facility] Comment:{POTASSIUM {[id number]) Chloride 103 98 - 110 mmol/L [facility] Comment:{CHLORIDE {[id number]) Carbon dioxide 28 20 - 31 mmol/L [facility] Comment:{CARBON DIOXIDE {[id number]) Calcium 9.9 8.9 - 10.4 mg/dL [facility] Comment:{CALCIUM {[id number]) 02/04/2016 5:02 PM EDT 02/04/2016 10:18 PM EDT Narrative [facility] - 02/05/2016 1:19 AM EDT Please note that this estimated GFR does not include an adjustment for the patient's height or weight, and can therefore, be viewed as reliable only for patients with heights between 60 and 72 . More precise quantification using a 24-hour urine sample or height-based algorithm is recommended for patients outside of this range of height and for those individuals with more precise needs for GFR calculation. Resulting Agency Comment [id number] us Gonzalo Robertson MD LABORATORY Final Result Performing Organization Address City/[facility] Co de Phone Number [facility] [address] [place] [address] * T4, FREE, SERUM (02/04/2016 5:02 PM EDT) FT4 1.2 0.8 - 1.4 ng/dL [facility] Comment:{T4, FREE {[id number]) 02/04/2016 5:02 PM EDT 02/04/2016 10:18 PM EDT Narrative Resulting Agency Comment [id number] us Gonzalo Robertson MD LABORATORY Final Result Performing Organization Address City/[facility] Co de Phone Number [facility] [address] [place] [phone] * TSH, 3RD GENERATION (02/04/2016 5:02 PM EDT) TSH 2.23 0.50 - 4.30 mIU/L [facility] Comment:{TSH {[id number]) 02/04/2016 5:02 PM EDT 02/04/2016 10:18 PM EDT Narrative Resulting Agency Comment [id number] Gonzalo Robertson MD LABORATORY Final Result [facility] [address] [place] [address] documented in this encounter Visit Diagnoses Diagnosis Headache, unspecified headache type documented in this encounter Care Teams Spanish Literature Professor Relationship Specialty Start Date End Date Gonzalo Robertson MD PCP - General 07/15/05 09/24/17 Gonzalo Robertson MD PCP - General Pediatrics 09/27/17 09/27/17 Shawn Shin MD PCP - General Internal Medicine 12/28/17 10/08/18 Alex Bui DO PCP - General 10/09/18 11/25/18 Shawn Shin MD PCP - General Internal Medicine 11/26/18 03/22/22 Curtis Godinez MD [address] [place] [address] PCP - General 03/23/22 09/02/23 Rudy Cui MD [address] [place] [phone] PCP - General Internal Medicine 09/03/23 documented as of this encounter
--- OUTSIDE RECORDS SUMMARY | 2024-12-26 10:16 | XMS_ITS | Encounter Summary ---
Author Organization [facility] Address [address] [place] [address] Care Team Providers Care Oil Recovery Operator Name Role Phone Gonzalo Robertson MD Primary Care Provider Gonzalo Joyner MD Primary Care Provider Shawn Diaz MD Primary Care Provider Unavailab Alex Meza DO Primary Care Provider [phone] Shawn Shin MD Primary Care Provider Unavailab Curtis Daily MD Primary Care Provider [phone] Rudy Cui MD Primary Care Provider [phone] Encounter Details Date Type Department Care Team (Late st Contact Info) Description 06/30/2013 Orders Only [facility] [address] [place] [address] Karlene Burleson, [facility] [address] [place] [address] Social History Tobacco Use Types Packs/Day Years [...] AM EDT CPE - Comprehensive Physical Exam [facility] Adult Medicine [address] [place] [phone] Eunice Wilson NP [address] [place] [address] las cpe 10/18/21 documented as of this encounter Procedures * Due to [place] Written law, this organization might not be sharing negative HIV tests. Procedure Name Priority Date/Time Associated Diagnosis Comments STREPTOCOCCUS, GROUP A CULTURE Routine 06/30/2013 6:46 PM EDT Acute pharyngitis documented in this encounter Results * Due to [place] Written law, this organization might not be sharing negative HIV tests. * STREPTOCOCCUS, GROUP A CULTURE (06/30/2013 6:46 PM EDT) Culture, Streptococci Group A, Throat SEE NOTE [facility] Comment: {STREPTOCOCCUS, GROUP A CULTURE {[id number]) STREPTOCOCCUS, GROUP A CULTURE MICRO NUMBER: [id number] TEST STATUS: FINAL SPECIMEN SOURCE: THROAT SPECIMEN QUALITY: ADEQUATE RESULT: No beta hemolytic Streptococci isolated 06/30/2013 6:46 PM EDT 06/30/2013 9:51 PM EDT Narrative Resulting Agency Comment [id number] Karlene Burleson [facility] LABORATORY Final Result Performing Organization Address City/State/[facility] Phone Number [facility] [address] [place] [address] documented in this encounter Visit Diagnoses Diagnosis Acute pharyngitis documented in this encounter Care Teams Oil Recovery Operator Relationship Specialty Start Date End Date Gonzalo Robertson MD PCP - General 07/15/05 09/24/17 Gonzalo Robertson MD PCP - General Pediatrics 09/27/17 09/27/17 Shawn Shin MD PCP - General Internal Medicine 12/28/17 10/08/18 Alex Bui DO PCP - General 10/09/18 11/25/18 Shawn Shin MD PCP - General Internal Medicine 11/26/18 03/22/22 Curtis Godinez MD [address] [place] [address] PCP - General 03/23/22 09/02/23 Rudy Cui MD [address] [place] [phone] PCP - General Internal Medicine 09/03/23 documented as of this encounter
--- OUTSIDE RECORDS SUMMARY | 2024-12-26 10:16 | XMS_ITS | Encounter Summary ---
Author Organization [facility] Address [address] [place] [address] Care Team Providers Care Flat Breakdown Processor Name Role Phone Gonzalo Robertson MD Primary Care Provider Gonzalo Joyner MD Primary Care Provider Shawn Diaz MD Primary Care Provider Unavailab Alex Meza DO Primary Care Provider [phone] Shawn Shin MD Primary Care Provider Unavailab Curtis Daily MD Primary Care Provider [phone] Rudy Cui MD Primary Care Provider [phone] Encounter Details Date Type Department Care Team (Late st Contact Info) Description 02/26/2013 [facility] Only [facility] [address] [place] [address] Gonzalo Robertson MD Social History Tobacco Use [...] Progress Notes * Gonzalo Robertson MD - 02/28/2013 9:42 AM ESTQuick Note: [place]. No GABHS. documented in this encounter Plan of Treatment Upcoming Encounters Date Type Department Care Team (Latest Contact Info) Description 07/29/2025 11:20 AM EDT CPE - Comprehensive Physical Exam [facility] Adult Medicine [address] [place] [phone] Eunice Wilson NP [address] [place] [address] las cpe 10/18/21 documented as of this encounter Procedures * Due to [place] [employer] law, this organization might not be sharing negative HIV tests. Procedure Name Priority Date/Time Associated Diagnosis Comments STREPTOCOCCUS, GROUP A CULTURE Routine 02/26/2013 4:30 PM EST Sorethroat documented in this encounter Results * Due to [facility] law, this organization might not be sharing negative HIV tests. * STREPTOCOCCUS, GROUP A CULTURE (02/26/2013 4:30 PM EST) Culture, Streptococci Group A, Throat SEE NOTE [facility] Comment: {STREPTOCOCCUS, GROUP A CULTURE {[id number]) STREPTOCOCCUS, GROUP A CULTURE MICRO NUMBER: [id number] TEST STATUS: FINAL SPECIMEN SOURCE: THROAT SPECIMEN QUALITY: ADEQUATE RESULT: No beta hemolytic Streptococci isolated 02/26/2013 4:30 PM EST 02/26/2013 10:57 PM EST Narrative Resulting Agency Comment [id number] Gonzalo Robertson MD LABORATORY Final Result Performing Organization Address City/State/[facility] Phone Number [facility] [address] [place] [address] documented in this encounter Visit Diagnoses Diagnosis Sorethroat Acute pharyngitis documented in this encounter Care Teams Flat Breakdown Processor Relationship Specialty Start Date End Date Gonzalo Robertson MD PCP - General 07/15/05 09/24/17 Gonzalo Robertson MD PCP - General Pediatrics 09/27/17 09/27/17 Shawn Shin MD PCP - General Internal Medicine 12/28/17 10/08/18 Alex Bui DO PCP - General 10/09/18 11/25/18 Shawn Shin MD PCP - General Internal Medicine 11/26/18 03/22/22 Curtis Godinez MD [address] [place] [address] PCP - General 03/23/22 09/02/23 Rudy Cui MD [address] [place] [phone] PCP - General Internal Medicine 09/03/23 documented as of this encounter
--- OUTSIDE RECORDS SUMMARY | 2024-12-26 10:16 | XMS_ITS | Clinical Summary ---
Author Organization [facility] Address [address] [place] [address] Care Team Providers Care Race Engine Builder Name Role Phone uRdy Cui MD Primary Care Provider Allergies Active Allergy Reactions Criticality Noted Date Comments Coconut Fatty Acids Urticarial Rash 10/16/2023 Coconut Fragrance Urticarial Rash 09/03/2023 Medications buPROPion HCl ER, XL, (WELLBUTRIN XL) 150 MG 24 hr tablet Take 1 tablet by mouth 1 (one) time each day in the morning. Active buPROPion HCl ER, XL, (WELLBUTRIN XL) 300 MG 24 hr tablet Take 1 tablet by mouth 1 (one) time each day in the morning. Active Albuterol (PROVENTIL HFA;VENTOLIN HFA) 90 mcg/ACT inhaler Inhale two puffs every 4 (four) hours if needed for wheezing or shortness of breath Dispense Generic or Brand Albuterol per preferred payor coverage.. 1 each 09/28/19 24 025 Active Vitamin D (VITAMIN D-3) 50 MCG (2000 UT) capsule Take 2,000 Units by mouth 1 (one) time each day. Active Ascorbic Acid (V-R VITAMIN C) 500 MG tablet Take 500 mg by mouth 1 (one) time each day. Active B Complex Vitamins (B COMPLEX-B12 OR) Take 1 capsule by mouth 1 (one) time each day. Active Lisdexamfetami ne Dimesylate (VYVANSE) 30 MG capsule TAKE 1 CAPSULE BY MOUTH EVERY DAY IN THE MORNING DIRECTED 11/20/19 25 Active traMADol HCl (Ultram) 50 MG tabletIndicati ons:Lumbar disc herniation,Rad iculitis Take one tablet (50 mg total) by mouth every 8 (eight) hours if needed for severe pain. 30 tablet 12/26/19 25 Active ADDERALL XR, 20MG, 20 MG 24 hr capsule Take 20 mg by mouth 1 (one) time each day 07/05/19 025 Discontinued Amphetamine-De xtroamphetamin e (ADDERALL, 10MG,) 10 MG tablet Take one tablet (10 mg total) by mouth 1 (one) time every afternoon. 09/10/19 025 Discontinued cloNIDine HCl (CATAPRES) 0.1 MG tablet Take 0.1 mg by mouth 1 (one) time each day if needed. 09/13/19 24 025 Discontinued Cyclobenzaprin e HCl (FLEXERIL) 5 MG tablet Take 1-2 pills at bedtime as needed. 14 tablet 12/28/19 24 025 Discontinued Gabapentin (NEURONTIN) 300 MG capsule Take one capsule (300 mg total) by mouth 3 (three) times a day if needed for pain. 90 capsule 11/15/19 25 025 Discontinued traMADol HCl (Ultram) 50 MG tabletIndicati ons:Lumbar disc herniation,Rad iculitis Take one tablet (50 mg total) by mouth every 6 (six) hours if needed for moderate pain or severe pain for up to 10 days. 28 tablet 11/28/19 25 025 Discontinued(Re order (No Cancel Rx)) Active Problems Problem Noted Date Diagnosed Date Stenosis of lateral recess of lumbar spine 08/26 Sciatica of left side - REHAB PT 01/04/2024 Nasal congestion 10/18/2021 Overview (10/18/2021): 10/18/2021 -- Difficulty breathing through his nose, got worse after he got his cat. He will trial either antihistamine or a nasal steroid spray Attention deficit disorder 09/28/2021 Overview (10/18/2021): 10/18/2021 -- Followed by outside psych, recently diagnosed ADD. PCP started Adderall 10mg bid. Feels like he's a little more calm but having some difficulty concentrating on tasks and focusing on things like reading. Does not follow with medical affairs specialist at this time. Consider pharm consult here. Reminded him about UDS policies HPV vaccination desired 03/09/2019 Overview (10/18/2021): 10/18/2021 -- 2nd dose completed today. Scheduled for 3rd dose 12/25/2018- after discussion of risks and benefits, he does desire to have the HPV vaccination series. First dose administered today, he will schedule follow-up with nursing per protocol Vegetarian diet 12/25/2018 Overview (10/18/2021): 10/18/2021 -- Lab work-up unrevealing. Counseled ongoing diet monitoring 12/25/2018- counseled on need for adequate protein intake. We will check labs today, mainly focusing on CBC, vitamin B12, vitamin D, ferritin, and magnesium. 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 Denies SI/HI. Followed by outside psych Mood disorder 06/24/2014 Overview (10/18/2021): 10/18/2021 --mixed anxiety and depression. Currently on Wellbutrin 450mg XL once daily. Doing well with his current dose. Continue to monitor. No SI/HI. 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 Had an MRI in the past which was normal. States today that he is still having headaches. He questions if they were related to his vision. He did have a new prescription for glasses within the past weeks -to- months. He denies any head trauma or injuries. Headache is occurring on a near daily basis. Usually occurs at night, around 9 PM. Headache is in his temples bilaterally with a pulsing sensation. He denies any photophobia or phonophobia. It causes some rare dyspepsia but no real nausea or vomiting. He does report some chronic sinus congestion for about 2 to 3 years. He denies any cough, rhinorrhea, or eye pressure pain. May have a chronic tension type headache or possibly a sinus headache. Will trial prednisone and if no improvement obtain an MRI and possibly a neurology consult. Patient agreeable. Recommended that he also use a antihistamine/decongestant combination as well as nasal steroid spray in the interim to see if this helps with his pressure Encounters Date Type Department Care Team Description 12/24/2024 Telephone [facility] [address] [place] [phone] Rudy Cui MD Prescription Assistance; Back Pain 12/10/[address] [phone] Rudy Cui MD Referral Request 12/05/[address] [phone] Rudy Cui MD Letter/form Request 12/04/2024 10:45 AM EDT Office Visit [address] [phone] Rudy Cui MD Chronic left-sided low back pain with left-sided sciatica (Primary Dx) 12/02/[address] [phone] Rudy Cui MD Appointment ; Letter/form Request (FMLA) 11/27/2024 [facility] [address] [place] [address] [place] [phone] Cameron Choudhury NP Refill Request 11/27/2024 Telephone [facility] [address] [place] [phone] Cameron Choudhury NP Prescription Assistance 11/27/2024 Telephone [facility] [address] [place] [phone] Cameron Choudhury NP Back Pain 11/13/2024 Telephone [facility] [address] [place] [phone] Rudy Cui MD Back Pain 11/04/2024 9:45 AM EDT Office Visit [facility] [address] [place] [phone] Cameron Choudhury NP Radiculitis (Primary Dx); Lumbar disc herniation; Low back pain of over 3 months duration; Stenosis of lateral recess of lumbar spine; Protrusion of lumbar intervertebral disc 10/14/2024 Telephone [facility] [address] [place] [phone] Rudy Cui MD Rash from Last 3 Months Immunizations Immunization Administration Dates Next Due COVID-19, mRNA (Moderna Pre Fall 2022) Monovalent, 100 mcg/0.5 ml or 50 mcg/0.25 ml dose 04/13/2021,09/10/2020,08/13/2020 DTaP 06/18/2001, 9,1997,04/30,1997 Flu Not O/W Specified, 3yrs & > 05/08/2012,03/21 Fluzone Vac, 3 Yrs & > 05/14/2013 HIB (PRP-T) 03/23/1998, 8,1997,02/24 HPV9 (Gardasil 9) 10/18/2021,12/25/2018 Hep A 05/08/2012 Hep A (pedi) 05/14/2013 Hep B (pedi) 1997,1997,1997 IPV 05/08/2002 Influenza,seasonal,trivalent ,preservat elizabeth (FLUZONE MDV) 03/03/2009 MMR 05/08/2002,03/23/1998 Meningococcal ACWY (Menactra) 07/21/2014, 009 OPV, Trivalent (Admin Before 07/23/2015) 9,1997,1997 PPV23 (Pneumovax) 06/18/2001 [facility] H1N1 Vaccine,intranasal 03/03/2009 [facility] Influenza Virus Vaccin e Splt 3yrs+ 03/15/2010,02/26/2008 Td - 12/25/2018 Tdap(Boostrix) 02/26/2008 Varicella 02/26/2008,06/28/1998 Family History Medical History Relation Name Comments Heart Disorder Father Hypertension Mother Relation Name Status Comments Father Mother Social History Tobacco Use Types Packs/Day Years Used Date Smoking Tobacco: Never Passive Smoke Exposure: Past Smokeless Tobacco: Never Tobacco Cessation:Counseling Given: Not Answered Comments:past nicotine vaping (x 2 months) Alcohol Use Standard Drinks/Week [...] Industry Job Start Date Job End Date [employer] Not on file Not on file Not on file Last Filed Vital Signs Vital Sign Reading Time Taken Comments Blood Pressure 117/74 12/04/2024 10:54 AM EDT Pulse 78 12/04/2024 10:54 AM EDT Temperature 36.4 C (97.6 F) 09/23/2024 9:20 AM EDT Respiratory Rate 16 08/20/2024 9:22 AM EDT Oxygen Saturation 97% 08/20/2024 9:22 AM EDT Inhaled Oxygen Concentration - - Weight 80.9 kg (178 lb 6.4 oz) 12/04/2024 10:54 AM EDT Height 185.4 cm (6' 1 ) 09/28/2023 2:47 PM EDT w /shoes Body Mass Index 23.54 09/28/2023 2:47 PM EDT Plan of Treatment Upcoming Encounters Date Type Department Care Team (Latest Contact Info) Description 07/29/2025 11:20 AM EDT CPE - Comprehensive Physical Exam [facility] [address] [place] [phone] Eunice Wilson NP [address] [place] [address] pat ribera 10/18/21 Health Maintenance Due Date Last Done Comments Hepatitis C Screening 1997 HPV Vaccine (3 - Male 3-dose series) 01/10/2022 10/18/2021, 12/25/2018 COVID-19 Vaccine ( - season) 2024 04/13/2021, 09/10/2020, 08/13/2020 Influenza (#1) 2024 05/14/2013, 04/23, 03/21/2011, Additional history exists DTaP/Tdap/Td (7 - Td or Tdap) 12/25/2028 12/25/2018, 02/26/2008, 06/18/2001, Additional history exists Zoster (Shingrix) (1 of 2) 2047 02/26/2008, Hep B Completed 1997, 07/1996, 1997 Hib Completed 03/23/1998, 07/23, 1997, Additional history exists Pneumococcal Aged Out 06/18/2001 No longer eligi ble based on patient's age to complete this topic Hep A Completed 05/14/2013, 05/08/2012 Meningococcal ACWY Completed 07/21/2014, 03/03/2009 Eye/Retina Exam Discontinued 06/18/2020, 05/25, 06/18/2020, Additional history exists LDL Cholesterol Discontinued 10/18/2021, 07/2018, 03/21/2018 Physical Discontinued 10/18/2021, 07/2018, 06/24/2014, Additional history exists Chest Imaging Discontinued 12/12/2023, 09/22, 10/16/2023, Additional history exists Procedures * Due to [employer] law, this organization might not be sharing negative HIV tests. Procedure Name Priority Date/Time Associated Diagnosis Comments CT CHEST W/O CONTRAST (DX: F/U ABNL CHEST CT) (3 MTHS FROM LAST) Routine 12/12/2023 1:23 PM EDT Abnormal findings on diagnostic imaging of lung VENIPUNCTURE Routine 10/18/2021 8:30 AM EDT Screening for hyperlipidemia from Last 3 Months or Most Recently Relevant to Health Maintenance Results * Due to [employer] law, this organization might not be sharing negative HIV tests. * (ABNORMAL) CT CHEST W/O CONTRAST (DX: F/U ABNL CHEST CT) (3 MTHS FROM LAST) (12/12/2023 1:23 PM EDT) KASIANER 99(A) RELIANT I MAGING - INTERNAL Anatomical Region Laterality Modality CHEST Computed Tomogra phy 12/13/2023 3:39 PM EDT Narrative 12/13/2023 3:39 PM EDT Patient History: F/U Abnl Chest CT,multiple ground glass nodules, for follow up, sputum culture + MAC CONTRAST: Exam: Nonenhanced CT chest with multiplanar reformats. Comparison: 09/10/2023 Findings: Lungs reveal a previously noted multifocal ground-glass opacities, seen on prior exam, to have completely resolved. Findings are compatible with resolved infectious or inflammatory process on the prior exam. No new ground-glass opacities. No pulmonary nodules. No focal consolidation. Airways are patent. No pneumothorax. No new mediastinal or hilar masses or adenopathy. No pleural or pericardial effusions. Images below the diaphragms reveal no acute abnormalities. Osseous structures reveal no destructive osseous lesions. Impression: 1. Complete resolution of the previously noted multifocal ground-glass opacities. 2. No abnormalities identified on today's exam. Plan: No further imaging evaluation is warranted based on resolution of the findings as described above. Further imaging should be based on clinical findings. Fleischner 2017 Guidelines were utilized to develop follow up recommendations for this patient. The full article can be viewed at: https://goo.gl/Bryan Follow up strategies in solid nodules vary depending on patient risk assessment, with patient's classified as high or low risk. Low risk is associated with young age, smaller nodule size, regular margins, and location in an area other than the upper lobe. High risk factors include older age, heavy smoking, emphysema, carcinogen exposure, larger nodule size, irregular or spiculated margins, and upper lobe location. Nodule size and morphology are the dominant factors. Follow up of subsolid nodules (including ground glass and part solid opacities) is different when compared to solid nodules based on risk of malignancy and a longer doubling time in this group. Therefore when follow up is recommended, it is for a longer interval. Also in this group, recommendations may vary depending on a solitary lesion versus multiplicity of lesions. A calculator of estimated risk is available at: https://goo.gl/JEEJEh ##PFU# Procedure Note Shen Oh MD - 12/13/2023 Patient History: F/U Abnl Chest CT,multiple ground glass nodules, forfollow up, sputum culture + MAC CONTRAST: Exam: Nonenhanced CT chest with multiplanar reformats. Comparison: 09/10/2023 Findings: Lungs reveal a previously noted multifocal ground-glass opacities, seen onprior exam, to have completely resolved. Findings are compatible withresolved infectious or inflammatory process on the prior exam. No newground-glass opacities. No pulmonary nodules. No focal consolidation. Airways are patent. No pneumothorax. No new mediastinal or hilar masses or adenopathy. No pleural orpericardial effusions. Images below the diaphragms reveal no acuteabnormalities. Osseous structures reveal no destructive osseous lesions. Impression: 1. Complete resolution of the previously noted multifocal ground-glassopacities. 2. No abnormalities identified on today's exam. Plan: No further imaging evaluation is warranted based on resolution ofthe findings as described above. Further imaging should be based onclinical findings. Fleischner 2017 Guidelines were utilized to develop follow uprecommendations for this patient. The full article can be viewed at:https://goo.gl/emmPOK Follow up strategies in solid nodules vary depending on patient riskassessment, with patient's classified as high or low risk. Low risk isassociated with young age, smaller nodule size, regular margins, andlocation in an area other than the upper lobe. High risk factors include older age, heavy smoking, emphysema,carcinogen exposure, larger nodule size, irregular or spiculated margins,and upper lobe location. Nodule size and morphology are the dominantfactors. Follow up of subsolid nodules (including ground glass and part solidopacities) is different when compared to solid nodules based on risk ofmalignancy and a longer doubling time in this group. Therefore whenfollow up is recommended, it is for a longer interval. Also in this group, recommendations may vary depending on asolitary lesion versus multiplicity of lesions. A calculator of estimatedrisk is available at: https://goo.gl/JEEJEh ##PFU# October Soha AMARO IMG CT NO CONTRAST ORDERABLES F inal Result * LIPID PANEL WITH REFLEX TO DIRECT LDL (10/18/2021 8:30 AM EDT) Cholesterol 122 <200 mg/dL [facility] HDL Cholesterol 47 > OR = 40 mg/dL [facility] Triglyceride 130 <150 mg/dL [facility] LDL Cholesterol 54 mg/dL (calc) [facility] Comment: Reference range: <100 Desirable range <100 mg/dL for primary prevention; <70 mg/dL for patients with CHD or diabetic patients with > or = 2 CHD risk factors. LDL-C is now calculated using the Amira calculation, which is a validated novel method providing better accuracy than the Friedewald equation in the estimation of LDL-C. Manuel SS et al. BEBO. 2013;310(19): 7140-1028 (http://education.Hithru/faq/CTY591) CHOL/HDL Ratio 2.6 <5.0 (calc) [facility] Cholesterol Non-HDL 75 <130 mg/dL (calc) [facility] Comment: For patients with diabetes plus 1 major ASCVD risk factor, treating to a non-HDL-C goal of <100 mg/dL (LDL-C of <70 mg/dL) is considered a therapeutic option. 10/18/2021 8:30 AM EDT 10/18/2021 10:17 AM EDT Narrative Resulting Agency Comment [id number] [facility] Final Result Performing Organization Address City/State/[facility] Co de Phone Number [facility] [address] [place] [address] from Last 3 Months or Most Recently Relevant to Health Maintenance Insurance [employer]EM[employer] ACCESS MICHELLE Care Teams Race Engine Builder Relationship Specialty Start Date End Date Rudy Cui MD [address] [place] [phone] PCP - General Internal Medicine 09/03/23
--- OUTSIDE RECORDS SUMMARY | 2024-12-26 10:16 | XMS_ITS | Encounter Summary ---
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 Procedure Name Priority Date/Time Associated Diagnosis Comments QUANTIFERON-TB GOLD Routine 09/10/2023 1 1:25 AM EDT Hemoptysis Fever, unspecified fever cause documented in this encounter Results * Due to [facility] law, this organization might not be sharing negative HIV tests. * QUANTIFERON-TB GOLD (09/10/2023 11:25 AM EDT) Quantiferon(R)-TB Gold Plus NEGATIVE NEGATIVE [facility] Comment: Negative test result. M. tuberculosis complex infection unlikely. NIL 0.04 IU/mL [facility] MITOGEN-NIL >10.00 IU/mL [facility] Mycobacterium tuberculosis tuberculin stimulated gamma interferon^correc hector for background <0.00 IU/mL [facility] TB2-NIL 0.00 IU/mL [facility] Comment: The Nil tube value reflects the background interferon gamma immune response of the patient's blood sample. This value has been subtracted from the patient's displayed TB and Mitogen results. Lower than expected results with the Mitogen tube prevent false-negative Quantiferon readings by detecting a patient with a potential immune suppressive condition and/or suboptimal pre-analytical specimen handling. The TB1 Antigen tube is coated with the M. tuberculosis-specific antigens designed to elicit responses from TB antigen primed CD4+ helper T-lymphocytes. The TB2 Antigen tube is coated with the M. tuberculosis-specific antigens designed to elicit responses from TB antigen primed CD4+ helper and CD8+ cytotoxic T-lymphocytes. For additional information, please refer to https://education.MeetMoi/faq/YIO152 (This link is being provided for informational/ educational purposes only.) 09/10/2023 11:2 5 AM EDT 09/10/2023 11:25 AM EDT Rudy Cui MD LABORATORY Final Result [facility] [address] [place] [address] documented in this encounter Visit Diagnoses Diagnosis Hemoptysis Fever, unspecified fever cause Elevated bilirubin Jaundice, unspecified, not of documented in this encounter Care Teams De Alcholizer Relationship Specialty Start Date End Date Rudy Cui MD [address] [place] [phone] PCP - General Internal Medicine 09/03/23 documented as of this encounter
--- OUTSIDE RECORDS SUMMARY | 2024-12-26 10:16 | XMS_ITS | Encounter Summary ---
Author Organization [facility] Address [address] [place] [address] Care Team Providers Care Horticultural Manager Name Role Phone Rudy Cui MD Primary Care Provider [phone] Reason for Visit * Reason Comments Prescription Assistance Back Pain Encounter Details Date Type Department Care Team (Late st Contact Info) Description 12/24/2024 Telephone [facility] Medicine [address] [place] [phone] Rudy Cui MD [address] [place] [phone] Prescription Assistance; Back Pain Social History Tobacco Use Types Packs/Day Years [...] file Not on file Not on file documented as of this encounter Miscellaneous Notes * Telephone Encounter - Rudy Cui MD - 12/24/2024 5:00 PM EDT Okay to refill tramadol 50mg q8h as needed. [place]. Please have coverage send script (I am not able to send this remotely). * Telephone Encounter - Aydee Kelly RN - 12/24/2024 4:49 PM EDT Spoke to patient. Patient is having back surgery in mid december for his herniated disc at [facility]. Per patient, [facility] told patient they will not prescribe pain medication prior to surgery and toldpatient to outreach PCP. Patient previously was going to see [facility] for spine surgery and they would prescribe; however, patient is not seeing [facility] anymore. Patient is asking if PCP will prescribe tramadol prior to surgery for his pain? Patient okay to wait until tomorrow and is aware PCP is out at this time. Covering/PCP: Please advise. Pharm: [facility]/pharmacy #[id number] [place] [phone] * Telephone Encounter - Karlie Syed - 12/24/2024 4:48 PM EDT Patient switched his industrial specialist and they are unable to prescribe his pain management medication pre surgery. Patient was being prescribed tramadol for herniated disk. Wants to know if PCP team can assist with Tramadol. Was getting from previous industrial specialist. Pt call transferred to nurse que- aware to remain on line for nurse, or will return to PSS. Reminder to patient, they will be asked again for name and . documented in this encounter Plan of Treatment Upcoming Encounters Date Type Department Care Team (Latest Contact Info) Description 07/29/2025 11:20 AM EDT CPE - Comprehensive Physical Exam [facility] Medicine [address] [place] [phone] Eunice Wilson NP [address] [place] [phone] las cpe 10/18/21 documented as of this encounter Visit Diagnoses Diagnosis Lumbar disc herniation Displacement of lumbar intervertebral disc without myelopathy Radiculitis Neuralgia, neuritis, and radiculitis, unspecified documented in this encounter Care Teams Horticultural Manager Relationship Specialty Start Date End Date Rudy Cui MD [address] [place] [phone] PCP - General Internal Medicine 09/03/23 documented as of this encounter
--- OUTSIDE RECORDS SUMMARY | 2024-12-26 10:16 | XMS_ITS | Encounter Summary ---
Author Organization [facility] Address [address] [place] [address] Care Team Providers Care Proposal Lead Writer Name Role Phone Shawn Shin MD Primary Care Provider Unavailab Curtis Daily MD Primary Care Provider [phone] Rudy Cui MD Primary Care Provider [phone] Reason for Visit * Reason Comments E-prescribing Refill Request Encounter Details Date Type Department Care Team (Late st Contact Info) Description 01/18/2019 Refill [facility] [address] [place] [phone] Dwayne Arriaga PA [address] [place] [address] E-prescribing Refill Request Social History Tobacco Use [...] encounter Miscellaneous Notes * Telephone Encounter - Denise Aragon - 01/20/2019 2:15 PM EDT Any special requests or concerns? none Faxed/E-prescribed medication renewal request(s) for Yoshi Locke 24 y.o. male received from pharmacy. Verified and Confirmed pharmacy for patient. Last CPE with this specialty: 06/24/2014 Last OV with this specialty: 12/25/2018 Next OV: Future Appointments Date Time Provider Department Phone 02/25/2019 9:15 AM Flex Reddy LPN [facility] [phone] Pertinent lab results: No labs suggested for any medication orders signed or pended in this encounter. Refresh if any orders changed. Allergies: Patient has no known allergies. BP Readings from Last 1 Encounters: 12/25/18 130/80 Patient Active Problem List Diagnosis Date Noted ??? Screening for hyperlipidemia 12/25/2018 12/25/2018 -- Lipids within the past year were normal. Will defer repeat testing at this time Lab Results Component Value Date CHOLESTEROL 157 03/21/2018 HDL 38 (L) 03/21/2018 LDL 96 03/21/2018 TRIGLYCERIDE 124 03/21/2018 AST 60 (H) 09/06/2016 ALT 109 (H) 09/06/2016 ??? Screening for diabetes mellitus 12/25/2018 12/25/2018 -- Will check glucose and f/up accordingly Lab Results Component Value Date GLUCOSE 79 03/21/2018 GLUCOSE 91 09/06/2016 GLUCOSE 80 02/04/2016 No results found for: A1C ??? Elevated LFTs 12/25/2018 12/25/2018 -- Likely secondary to mono. Will recheck and f/up accordingly Lab Results Component Value Date PROTEINTOTAL 6.8 09/06/2016 ALBUMIN 4.6 09/06/2016 BILI 1.4 (H) 09/06/2016 BILIDIRECT 0.3 (H) 09/06/2016 ALKPHOS 117 09/06/2016 AST 60 (H) 09/06/2016 ALT 109 (H) 09/06/2016 ??? Vegetarian diet 12/25/2018 ??? History of mononucleosis syndrome 09/18/2016 12/25/2018 -- No complaints today, will monitor 09/06/2016- Monospot positive. WBC 9.8 with 31% atypical lymphs. ??? Episodic tension-type headache, not intractable 02/20/2016 12/25/2018 -- Chronic problem noted by saw runner. Had an MRI in the past which was normal ??? Major depressive disorder in full remission (HCC) 02/04/2016 12/25/2018 -- Currently on Wellbutrin 450mg XL once daily with good control. Denies SI/HI ??? Mood disorder (HCC) 06/24/2014 12/25/2018 -- Generalized anxiety. Currently on Wellbutrin 450mg XL once daily ??? Encounter for annual physical exam 03/15/2010 12/25/2018 -- Reports being in his usual state of health. Concerns addressed separately Current Outpatient Medications on File Prior to Visit Medication Sig Dispense Refill ??? buPROPion HCl ER, XL, 300 MG TABLET SR 24 HR TAKE 1 TABLET DAILY IN THE MORNING 90 Tab 3 ??? buPROPion HCl ER, XL, 150 MG TABLET SR 24 HR TAKE 1 TABLET DAILY IN THE MORNING 90 Tab 3 ??? FLUTICASONE PROPIONATE, NASAL, 50 MCG/ACT Suspension 2 sprays each nostril daily 1 Inhaler 1 ??? Loratadine (CLARITIN) 10 MG Tab 1 TABLET DAILY 30 Tab 1 ??? predniSONE 10 MG Tab Take 4 by mouth daily for 5 days 20 Tab 0 documented in this encounter Plan of Treatment Upcoming Encounters Date Type Department Care Team (Latest Contact Info) Description 07/29/2025 11:20 AM EDT CPE - Comprehensive Physical Exam [facility] Adult Medicine [address] [place] [phone] Eunice Wilson NP [address] [place] [address] las cpe 10/18/21 documented as of this encounter Visit Diagnoses Diagnosis Nasal congestion Other diseases of nasal cavity and sinuses documented in this encounter Care Teams Proposal Lead Writer Relationship Specialty Start Date End Date Shawn Shin MD PCP - General Internal Medicine 11/26/18 03/22/22 Curtis Godinez MD [address] [place] [address] PCP - General 03/23/22 09/02/23 Rudy Cui MD [address] [place] [phone] PCP - General Internal Medicine 09/03/23 documented as of this encounter
--- OUTSIDE RECORDS SUMMARY | 2024-12-26 10:16 | XMS_ITS | Encounter Summary ---
Author Organization [facility] Address [address] [place] [address] Care Team Providers Care Business Solutions Consultant Name Role Phone Gonzalo Robertson MD Primary Care Provider Gonzalo Joyner MD Primary Care Provider Shawn Diaz MD Primary Care Provider Unavailab Alex Meza DO Primary Care Provider [phone] Shawn Shin MD Primary Care Provider Unavailab Curtis Daily MD Primary Care Provider [phone] Rudy Cui MD Primary Care Provider [phone] Encounter Details Date Type Department Care Team (Late st Contact Info) Description 07/13/2014 Orders Only [facility] [address] [place] [phone] Terry Hill P, DO Social History Tobacco Use Types Packs/Day Years [...] as of this encounter Progress Notes * Jose Pagan MD - 07/15/2014 9:19 AM EDTQuick Note: Tc noted documented in this encounter Plan of Treatment Upcoming Encounters Date Type Department Care Team (Latest Contact Info) Description 07/29/2025 11:20 AM EDT CPE - Comprehensive Physical Exam [facility] Adult Medicine [address] [place] [phone] Eunice Wilson NP [address] [place] [address] las cpe 10/18/21 documented as of this encounter Procedures * Due to [place] [employer] law, this organization might not be sharing negative HIV tests. Procedure Name Priority Date/Time Associated Diagnosis Comments STREPTOCOCCUS, GROUP A CULTURE Routine 07/13/2014 3:10 PM EDT Acute pharyngitis documented in this encounter Results * Due to [place] [employer] law, this organization might not be sharing negative HIV tests. * STREPTOCOCCUS, GROUP A CULTURE (07/13/2014 3:10 PM EDT) Culture, Streptococci Group A, Throat SEE NOTE [facility] Comment: {STREPTOCOCCUS, GROUP A CULTURE {[id number]) STREPTOCOCCUS, GROUP A CULTURE MICRO NUMBER: [id number] TEST STATUS: FINAL SPECIMEN SOURCE: NOT GIVEN SPECIMEN QUALITY: ADEQUATE RESULT: No beta hemolytic Streptococci isolated 07/13/2014 3:10 PM EDT 07/13/2014 9:22 PM EDT Narrative Resulting Agency Comment [id number] Hunter Fisher MD LABORATORY Final Result Performing Organization Address City/State/[facility] Co de Phone Number [facility] [address] [place] [address] documented in this encounter Visit Diagnoses Diagnosis Acute pharyngitis documented in this encounter Care Teams Business Solutions Consultant Relationship Specialty Start Date End Date Gonzalo Robertson MD PCP - General 07/15/05 09/24/17 Gonzalo Robertson MD PCP - General Pediatrics 09/27/17 09/27/17 Shawn Shin MD PCP - General Internal Medicine 12/28/17 10/08/18 Alex Bui DO PCP - General 10/09/18 11/25/18 Shawn Shin MD PCP - General Internal Medicine 11/26/18 03/22/22 Curtis Godinez MD [address] [place] [address] PCP - General 03/23/22 09/02/23 Rudy Cui MD [address] [place] [phone] PCP - General Internal Medicine 09/03/23 documented as of this encounter
--- OUTSIDE RECORDS SUMMARY | 2024-12-26 10:16 | XMS_ITS | Encounter Summary ---
Author Organization [facility] Address [address] [place] [address] Care Team Providers Care Director Of Primary Care Name Role Phone Rudy Cui MD Primary Care Provider [phone] Encounter Details Date Type Department Care Team (Late st Contact Info) Description 09/28/2023 Orders Only [facility] Pulmonary [address] 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 Procedure Name Priority Date/Time Associated Diagnosis Comments CULTURE, FUNGUS W/SMEARNOT HAIR, SKIN, BLOOD Routine 09/29/2023 1:32 PM EDT Hemoptysis Abnormal chest CT C-REACTIVE PROTEIN (CRP) - INFLAMMATION Routine 09/28/2023 4:02 PM EDT Hemoptysis ERYTHROCYTE SEDIMENTATION RATE (ESR) Routine 09/28/2023 4:02 PM EDT Hemoptysis documented in this encounter Results * Due to [place] [employer] law, this organization might not be sharing negative HIV tests. * (ABNORMAL) CULTURE, FUNGUS W/SMEARNOT HAIR, SKIN, BLOOD (09/29/2023 1:32 PM EDT) Fungus identified SEE NOTE(A) [facility] Comment: CULTURE, FUNGUS W/SMEAR NOT HAIR, SKIN, BLOOD Micro Number: [id number] Test Status: Final Specimen Source: Not given Specimen Quality: Adequate Smear: No fungal elements seen. Result: Scant growth of Sienna lipolytica 09/29/2023 1:32 PM EDT 09/29/2023 8:29 PM EDT October [facility] Final Result [facility] [address] [place] [address] * ERYTHROCYTE SEDIMENTATION RATE (ESR) (09/28/2023 4:02 PM EDT) Sedimentation Rate [place] (ESR) 2 < OR = 15 mm/h [facility] 09/28/2023 4:02 PM EDT 09/29/2023 12:43 AM EDT Narrative Resulting Agency Comment [id number] October [facility] SAME DAY RESULT Final Resul t [facility] [address] [place] [address] * C-REACTIVE PROTEIN (CRP) - INFLAMMATION (09/28/2023 4:02 PM EDT) C reactive protein <3.0 <8.0 mg/L [facility] 09/28/2023 4:02 PM EDT 09/29/2023 12:43 AM EDT Narrative Resulting Agency Comment [id number] October [facility] Final Result Performing Organization Address City/[facility]/ZIP Co de Phone Number [facility] [address] [place] [address] documented in this encounter Visit Diagnoses Diagnosis Hemoptysis Abnormal chest CT Nonspecific (abnormal) findings on radiological and other examination of other intrathoracic organs documented in this encounter Care Teams Director Of Primary Care Relationship Specialty Start Date End Date Rudy Cui MD [address] [place] [phone] PCP - General Internal Medicine 09/03/23 documented as of this encounter
--- OUTSIDE RECORDS SUMMARY | 2024-12-26 10:16 | XMS_ITS | Encounter Summary ---
Author Organization [facility] Address [address] [place] [address] Care Team Providers Care Ice Plant Operator Name Role Phone Shawn Shin MD Primary Care Provider Unavailab Curtis Daily MD Primary Care Provider [phone] Rudy Cui MD Primary Care Provider [phone] Reason for Visit * Reason Comments Erroneous encounter-disregard Encounter Details Date Type Department Care Team (Late st Contact Info) Description 06/25/2020 Telephone [facility] [address] [place] [phone] Shawn Shin MD Erroneous encounter-disregard Social History Tobacco Use Types Packs/Day Years [...] Orientation Straight 09/07/2023 2: 01 PM EDT COVID-19 Exposure Response Date Recorded In the last month, have you been in contact with someone who was confirmed or suspected to have Coronavirus / COVID-19? No / Unsure 06/25/2020 2:00 PM EST documented as of this encounter Miscellaneous Notes * Telephone Encounter - Veronica Yeung - 06/25/2020 3:00 PM EST documented in this encounter Plan of Treatment Upcoming Encounters Date Type Department Care Team (Latest Contact Info) Description 07/29/2025 11:20 AM EDT CPE - Comprehensive Physical Exam [facility] Adult Medicine [address] [place] [phone] Eunice Wilson NP [address] [place] [address] las cpe 10/18/21 documented as of this encounter Visit Diagnoses Not on filedocumented in this encounter Care Teams Ice Plant Operator Relationship Specialty Start Date End Date Shawn Shin MD PCP - General Internal Medicine 11/26/18 03/22/22 Curtis Godinez MD [address] [place] [phone] PCP - General 03/23/22 09/02/23 Rudy Cui MD [address] [place] [phone] PCP - General Internal Medicine 09/03/23 documented as of this encounter
--- OUTSIDE RECORDS SUMMARY | 2024-12-26 10:16 | XMS_ITS | Encounter Summary ---
Author Organization [facility] Address [address] [place] [address] Care Team Providers Care Signal Apprentice Name Role Phone Shawn Shin MD Primary Care Provider Unavailab Alex Meza DO Primary Care Provider [phone] Shawn Shin MD Primary Care Provider Unavailab Curtis Daily MD Primary Care Provider Rudy Cui MD Primary Care Provider [phone] Encounter Details Date Type Department Care Team (Late st Contact Info) Description 03/21/2018 Orders Only [facility] [address] [place] [phone] Shawn Shni MD Social History Tobacco Use Types Packs/Day [...] AM EDT CPE - Comprehensive Physical Exam [facility] Adult Medicine [address] [place] [phone] Eunice Wilson NP [address] [place] [phone] pat cpe 10/18/21 documented as of this encounter Procedures * Due to [place] [employer] law, this organization might not be sharing negative HIV tests. Procedure Name Priority Date/Time Associated Diagnosis Comments LIPID PANEL WITH REFLEX TO DIRECT LDL Routine 03/21/2018 2:12 PM EST Lipid screening BASIC METABOLIC PANEL WITH (GFR) Routine 03/21/2018 2:12 PM EST JOSUE (generalized anxiety disorder) Mood disorder documented in this encounter Results * Due to [place] state law, this organization might not be sharing negative HIV tests. * (ABNORMAL) LIPID PANEL WITH REFLEX TO DIRECT LDL (03/21/2018 2:12 PM EST) Cholesterol 157 <200 mg/dL [facility] HDL Cholesterol 38(L) >40 mg/dL [facility] Triglyceride 124 <150 mg/dL [facility] LDL Cholesterol 96 mg/dL (calc) [facility] Comment: Reference range: <100 Desirable range <100 mg/dL for primary prevention; <70 mg/dL for patients with CHD or diabetic patients with > or = 2 CHD risk factors. LDL-C is now calculated using the Manuel-Mahoney calculation, which is a validated novel method providing better accuracy than the Friedewald equation in the estimation of LDL-C. Manuel SS et al. BEBO. 2013;310(19): 9877-4874 (http://education.[employer].com/faq/DWQ591) CHOL/HDL Ratio 4.1 <5.0 (calc) [facility] Cholesterol Non-HDL 119 <130 mg/dL (calc) [facility] Comment: For patients with diabetes plus 1 major ASCVD risk factor, treating to a non-HDL-C goal of <100 mg/dL (LDL-C of <70 mg/dL) is considered a therapeutic option. 03/21/2018 2:12 PM EST 03/21/2018 8:18 PM EST Narrative Resulting Agency Comment [id number] Shawn Shin MD LABORATORY Final Result [facility] [address] [place] [address] * (ABNORMAL) BASIC METABOLIC PANEL WITH (GFR) (03/21/2018 2:12 PM EST) Glucose 79 65 - 99 mg/dL [facility] Comment:Fasting reference in terval Urea Nitrogen Blood (BUN) 18 7 - 25 mg/dL [facility] Creatinine 1.01 0.60 - 1.35 mg/dL [facility] GFR 106 > OR = 60 mL/min/1. 73m2 [facility] GFR () 123 > OR = 60 mL/min/1. 73m2 [facility] BUN/Creatinine Ratio NOT APPLICABLE 6 - 22 (calc) [facility] Sodium 142 135 - 146 mmol/L [facility] Potassium 4.4 3.5 - 5.3 mmol/L [facility] Chloride 102 98 - 110 mmol/L [facility] Carbon dioxide 27 20 - 32 mmol/L [facility] Calcium 10.4(H) 8.6 - 10.3 mg/dL [facility] 03/21/2018 2:12 PM EST 03/21/2018 8:18 PM EST Narrative [facility] - 03/21/2018 10:27 PM EST Please note that this estimated GFR does [...] needs for GFR calculation. Resulting Agency Comment [id number] Shawn Shin MD LABORATORY Final Result [facility] [address] [place] [address] documented in this encounter Visit Diagnoses Diagnosis JOSUE (generalized anxiety disorder) Generalized anxiety disorder Mood disorder Unspecified episodic mood disorder Lipid screening Screening for lipoid disorders documented in this encounter Care Teams Signal Apprentice Relationship Specialty Start Date End Date Shawn Shin MD PCP - General Internal Medicine 12/28/17 10/08/18 Alex Bui DO PCP - General 10/09/18 11/25/18 Shawn Shin MD PCP - General Internal Medicine 11/26/18 03/22/22 Curtis Godinez MD [address] [place] [address] PCP - General 03/23/22 09/02/23 Rudy Cui MD [address] [place] [phone] PCP - General Internal Medicine 09/03/23 documented as of this encounter
--- OUTSIDE RECORDS SUMMARY | 2024-12-26 10:16 | XMS_ITS | Encounter Summary ---
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 * Telephone Encounter - Cameron Choudhury NP - 11/27/2024 11:28 AM EDT Yes, thanks. * Telephone Encounter - Maegan Hernandez LPN - 11/27/2024 11:22 AM EDT Should pt scheduled f/u appt with for surgical intervention? * Telephone Encounter - Eunice Sapp - 11/27/2024 9:23 AM EDT Patiet requesting a call back to schedule sx. documented in this encounter Plan of Treatment Upcoming Encounters Date Type Department Care Team (Latest Contact Info) Description 07/29/2025 11:20 AM EDT CPE - Comprehensive Physical Exam [facility] Adult Medicine [address] [place] [phone] Eunice Wilson NP [address] [place] [address] las cpe 10/18/21 documented as of this encounter Visit Diagnoses Not on filedocumented in this encounter Care Teams Axle Polisher Relationship Specialty Start Date End Date Rudy Cui MD [address] [place], [place] [phone] PCP - General Internal Medicine 09/03/23 documented as of this encounter
--- OUTSIDE RECORDS SUMMARY | 2024-12-26 10:16 | XMS_ITS | Encounter Summary ---
Author Organization [facility] Address [address] [place] [address] Care Team Providers Care Oil Driller Name Role Phone Shawn Shin MD Primary Care Provider Unavailab Curtis Daily MD Primary Care Provider [phone] Rudy Cui MD Primary Care Provider [phone] Encounter Details Date Type Department Care Team (Late st Contact Info) Description 12/25/2018 Orders Only [facility] [address] [place] [phone] Dwayne Arriaga PA [address] [place] [address] Social History Tobacco Use Types Packs/Day Years [...] as of this encounter Progress Notes * Dwayne Arriaga PA - 12/30/2018 6:30 AM EDT Letter sent. To Nursing, [place], or PSS: If patient calls back for results, please see and review results letter. documented in this encounter Plan of Treatment Upcoming Encounters Date Type Department Care Team (Latest Contact Info) Description 07/29/2025 11:20 AM EDT CPE - Comprehensive Physical Exam [facility] Adult [facility] [address] [place] [phone] Eunice Wilson NP [address] [place] [phone] las cpe 10/18/21 documented as of this encounter Procedures * Due to [place] [employer] law, this organization might not be sharing negative HIV tests. Procedure Name Priority Date/Time Associated Diagnosis Comments CBC INCLUDES DIFFERENTIAL AND PLATELET COUNT Routine 12/25/2018 12:17 PM EDT Vegetarian diet Other headache syndrome ALANINE AMINOTRANSFERASE (ALT), SERUM Routine 12/25/2018 12:17 PM EDT Vegetarian diet Elevated LFTs ASPARTATE AMINOTRANSFERASE (AST), SERUM Routine 12/25/2018 12:17 PM EDT Vegetarian diet Elevated LFTs MAGNESIUM, SERUM Routine 12/25/2018 12:1 7 PM EDT Vegetarian diet Other headache syndrome FERRITIN Routine 12/25/2018 12:17 PM EDT Vegetarian diet VITAMIN B12 (CYANOCOBALAMIN), SERUM Routine 12/25/2018 12:17 PM EDT Vegetarian diet VITAMIN D, 25-HYDROXY, TOTAL, IMMUNOASSAY Routine 12/25/2018 12:17 PM EDT Vegetarian diet LIPID PANEL WITH REFLEX TO DIRECT LDL Routine 12/25/2018 12:17 PM EDT Vegetarian diet BASIC METABOLIC PANEL WITH (GFR) Routine 12/25/2018 12:17 PM EDT Vegetarian diet Other headache syndrome Screening for diabetes mellitus documented in this encounter Results * Due to [place] EatingWell law, this organization might not be sharing negative HIV tests. * MAGNESIUM, SERUM (12/25/2018 12:17 PM EDT) Magnesium 2.1 1.5 - 2.5 mg/dL [facility] 12/25/2018 12:1 7 PM EDT 12/25/2018 2:50 PM EDT Narrative Resulting Agency Comment [id number] [facility] LABORATORY Final Result Performing Organization Address [facility] de Phone Number [facility] [address] [place] [phone] * FERRITIN (12/25/2018 12:17 PM EDT) Ferritin 71 38 - 380 ng/mL [facility] 12/25/2018 12:1 7 PM EDT 12/25/2018 2:50 PM EDT Narrative Resulting Agency Comment [id number] [facility] LABORATORY Final Result Performing Organization Address [facility] de Phone Number [facility] [address] [place] [address] * (ABNORMAL) VITAMIN D, 25-HYDROXY, TOTAL, IMMUNOASSAY (12/25/2018 12:17 PM EDT) Vitamin D, 25-OH, Total 20(L) 30 - 100 ng/mL [facility] Comment: Vitamin D Status 25-OH Vitamin D: Deficiency: <20 ng/mL Insufficiency: 20 - 29 ng/mL Optimal: > or = 30 ng/mL For 25-OH Vitamin D testing on patients on D2-supplementation and patients for whom quantitation of D2 and D3 fractions is required, the QuestAssureD(TM) 25-OH VIT D, (D2,D3), LC/MS/MS is recommended: order code 55739 (patients >2yrs). For more information on this test, go to: http://education.[employer]./faq/CTH036 (This link is being provided for informational/educational purposes only.) 12/25/2018 12:1 7 PM EDT 12/25/2018 2:50 PM EDT Narrative Resulting Agency Comment [id number] [facility] Final Result Performing Organization Address [facility] Co de Phone Number [facility] [address] [place] [address] * VITAMIN B12 (CYANOCOBALAMIN), SERUM (12/25/2018 12:17 PM EDT) Vitamin B12 (Cobalamins) 279 200 - 1100 pg/mL [facility] Comment: Please Note: Although the reference range for vitamin B12 is 200-1100 pg/mL, it has been reported that between 5 and 10% of patients with values between 200 and 400 pg/mL may experience neuropsychiatric and hematologic abnormalities due to occult B12 deficiency; less than 1% of patients with values above 400 pg/mL will have symptoms. 12/25/2018 12:1 7 PM EDT 12/25/2018 2:50 PM EDT Narrative Resulting Agency Comment [id number] [facility] Final Result Performing Organization Address [facility] de Phone Number [facility] [address] [place] [address] * LIPID PANEL WITH REFLEX TO DIRECT LDL (12/25/2018 12:17 PM EDT) Cholesterol 159 <200 mg/dL [facility] HDL Cholesterol 45 >40 mg/dL [facility] Triglyceride 121 <150 mg/dL [facility] LDL Cholesterol 92 mg/dL (calc) [facility] Comment: Reference range: <100 Desirable range <100 mg/dL for primary prevention; <70 mg/dL for patients with CHD or diabetic patients with > or = 2 CHD risk factors. LDL-C is now calculated using the Manuel-Denzel calculation, which is a validated novel method providing better accuracy than the Friedewald equation in the estimation of LDL-C. Manuel SS et al. BEBO. 2013;310(19): 1180-6881 (http://education.[employer].ArmorText/faq/JFB680) CHOL/HDL Ratio 3.5 <5.0 (calc) [facility] Cholesterol Non-HDL 114 <130 mg/dL (calc) [facility] Comment: For patients with diabetes plus 1 major ASCVD risk factor, treating to a non-HDL-C goal of <100 mg/dL (LDL-C of <70 mg/dL) is considered a therapeutic option. 12/25/2018 12:1 7 PM EDT 12/25/2018 2:50 PM EDT Narrative Resulting Agency Comment [id number] [facility] Final Result Performing Organization Address [facility] de Phone Number [facility] [address] [place] [address] * CBC INCLUDES DIFFERENTIAL AND PLATELET COUNT (12/25/2018 12:17 PM EDT) WBC 4.6 3.8 - 10.8 Thousand/u L [facility] RBC 4.59 4.20 - 5.80 Million/uL [facility] Hemoglobin 14.0 13.2 - 17.1 g/dL [facility] Hematocrit 39.6 38.5 - 50.0 % [facility] MCV 86.3 80.0 - 100.0 fL [facility] MCH 30.5 27.0 - 33.0 pg [facility] MCHC 35.4 32.0 - 36.0 g/dL [facility] RDW 12.5 11.0 - 15.0 % [facility] PLT 221 140 - 400 Thousand/u L [facility] MPV 10.7 7.5 - 12.5 fL [facility] Neutrophils # 1794 1500 - 7800 cells/uL [facility] Lymphocytes # 2061 850 - 3900 cells/uL [facility] Monocytes # 501 200 - 950 cells/uL [facility] Eosinophils # 202 15 - 500 cells/uL [facility] Basophils # 41 0 - 200 cells/uL [facility] Neutrophils % 39 % [facility] Lymphocytes % 44.8 % [facility] Monocytes % 10.9 % [facility] Eosinophils % 4.4 % [facility] Basophils % 0.9 % [facility] 12/25/2018 12:1 7 PM EDT 12/25/2018 2:50 PM EDT Narrative Resulting Agency Comment [id number] [facility] SAME DAY RESULT Final Result Performing Organization Address [facility] Co de Phone Number [facility] [address] [place] [address] * ALANINE AMINOTRANSFERASE (ALT), SERUM (12/25/2018 12:17 PM EDT) ALT (SGPT) 28 9 - 46 U/L [facility] 12/25/2018 12:1 7 PM EDT 12/25/2018 2:50 PM EDT Narrative Resulting Agency Comment [id number] [facility] LAB SAME DAY RESULT Final Result Performing Organization Address [facility] Co de Phone Number [facility] [address] [place] [address] * ASPARTATE AMINOTRANSFERASE (AST), SERUM (12/25/2018 12:17 PM EDT) AST (SGOT) 20 10 - 40 U/L [facility] 12/25/2018 12:1 7 PM EDT 12/25/2018 2:50 PM EDT Narrative Resulting Agency Comment [id number] [facility] LAB SAME DAY RESULT Final Result Performing Organization Address [facility] Phone Number [facility] [address] [place] [address] * BASIC METABOLIC PANEL WITH (GFR) (12/25/2018 12:17 PM EDT) Glucose 73 65 - 99 mg/dL [facility] Comment:Fasting reference in terval Urea Nitrogen Blood (BUN) 19 7 - 25 mg/dL [facility] Creatinine 1.03 0.60 - 1.35 mg/dL [facility] EGFR 103 > OR = 60 mL/min/1. 73m2 [facility] GFR () 120 > OR = 60 mL/min/1. 73m2 [facility] BUN/Creatinine Ratio NOT APPLICABLE 6 - 22 (calc) [facility] Sodium 141 135 - 146 mmol/L [facility] Potassium 4.4 3.5 - 5.3 mmol/L [facility] Chloride 104 98 - 110 mmol/L [facility] Carbon dioxide 25 20 - 32 mmol/L [facility] Calcium 9.4 8.6 - 10.3 mg/dL [facility] 12/25/2018 12:1 7 PM EDT 12/25/2018 2:50 PM EDT Narrative [facility] - 12/25/2018 10:09 PM EDT Please note that this estimated GFR [...] needs for GFR calculation. Resulting Agency Comment [id number] [facility] Final Result [facility] [address] [place] [address] documented in this encounter Visit Diagnoses Diagnosis Vegetarian diet Other specified conditions influencing health status Other headache syndrome Screening for diabetes mellitus Elevated LFTs Other abnormal blood chemistry documented in this encounter Care Teams Oil Driller Relationship Specialty Start Date End Date Shawn Shin MD PCP - General Internal Medicine 11/26/18 03/22/22 Curtis Godinez MD [address] [place] [phone] PCP - General 03/23/22 09/02/23 Rudy Cui MD [address] [place] [phone] PCP - General Internal Medicine 09/03/23 documented as of this encounter
--- OUTSIDE RECORDS SUMMARY | 2024-12-26 10:16 | XMS_ITS | Encounter Summary ---
Author Organization [facility] Address [address] [place] [address] Care Team Providers Care Bun Icer Name Role Phone Gonzalo Robertson MD Primary Care Provider Gonzalo Joyner MD Primary Care Provider Shawn Diaz MD Primary Care Provider Unavailab Alex Meza DO Primary Care Provider [phone] Shawn Shin MD Primary Care Provider Unavailab Curtis Daily MD Primary Care Provider [phone] Rudy Cui MD Primary Care Provider [phone] Encounter Details Date Type Department Care Team (Late st Contact Info) Description 08/11/[address] [facility] [address] [place] [phone] Laura Fleming MD Social History Tobacco Use Types Packs/Day [...] AM EDT CPE - Comprehensive Physical Exam [facility] [address] [place] [phone] Eunice Wilson, IRONER OR PRESSER [address] [place] [address] pat ribera 10/18/21 documented as of this encounter Procedures * Due to [place] [employer] law, this organization might not be sharing negative HIV tests. Procedure Name Priority Date/Time Associated Diagnosis Comments STREPTOCOCCUS, GROUP A CULTURE Routine 08/11/2015 4:39 PM EDT Sore throat documented in this encounter Results * Due to [place] state law, this organization might not be sharing negative HIV tests. * STREPTOCOCCUS, GROUP A CULTURE (08/11/2015 4:39 PM EDT) Culture, Streptococci Group A, Throat SEE NOTE [facility] Comment: {STREPTOCOCCUS, GROUP A CULTURE {[id number]) STREPTOCOCCUS, GROUP A CULTURE MICRO NUMBER: [id number] TEST STATUS: FINAL SPECIMEN SOURCE: THROAT SPECIMEN QUALITY: ADEQUATE RESULT: No beta hemolytic Streptococci isolated 08/11/2015 4:39 PM EDT 08/11/2015 10:31 PM EDT Narrative Resulting Agency Comment [id number] Laura Fleming MD LABORATORY Final Result Performing Organization Address City/State/[facility] Co de Phone Number [facility] [address] [place] [address] documented in this encounter Visit Diagnoses Diagnosis Sore throat Acute pharyngitis documented in this encounter Care Teams Bun Icer Relationship Specialty Start Date End Date Gonzalo Robertson MD PCP - General 07/15/05 09/24/17 Gonzalo Robertson MD PCP - General Pediatrics 09/27/17 09/27/17 Shawn Shin MD PCP - General Internal Medicine 12/28/17 10/08/18 Alex Bui DO PCP - General 10/09/18 11/25/18 Shawn Shin MD PCP - General Internal Medicine 11/26/18 03/22/22 Curtis Godinez MD [address] [place] [address] PCP - General 03/23/22 09/02/23 Rudy Cui MD [address] [place] [phone] PCP - General Internal Medicine 09/03/23 documented as of this encounter
--- OUTSIDE RECORDS SUMMARY | 2024-12-26 10:16 | XMS_ITS | Encounter Summary ---
Author Organization [facility] Address [address] [place] [address] Care Team Providers Care Clay Stain Mixer Name Role Phone Shawn Shin MD Primary Care Provider Unavailab Curtis Daily MD Primary Care Provider [phone] Rudy Cui MD Primary Care Provider [phone] Reason for Visit * Reason Comments E-prescribing Refill Request Encounter Details Date Type Department Care Team (Late st Contact Info) Description 03/25/2021 Refill [facility] [address] [place] [phone] Shawn Shin MD E-prescribing Refill Request Social [...] encounter Miscellaneous Notes * Telephone Encounter - Kristy Welsh - 05/05/2021 3:28 PM EST 2nd attempt to contact patient. Mailbox is full unable to leave message * Telephone Encounter - Natividad Lambert - 03/30/2021 9:31 AM EST Called and lmom for pt to call back Upon call back please see below * Telephone Encounter - Shawn Shin - 03/28/2021 7:50 AM EST PSS please arrange follow-up appointment for continued refills * Telephone Encounter - Sharda Ortiz - 03/28/2021 7:46 AM EST Concerns for Provider Review: ?? Patient has not been seen in over 1 year. Taper protocol in place until appointment scheduled. Prepared 90 day quantity, no refills. Notified patient on medication bottle. No provider action required. HCC diagnoses are outstanding and no appointment is scheduled in primary care this year Pharmacy Confirmed? The most recent pharmacy on file was used. When is the medication needed? within 48 hours, will send routine message Past Appointments: Last CPE: 12/25/2018 Last appointment in this department: 12/25/2018 Future Appointments Date Time Provider Department Phone 07/20/21 9:[address] [facility] [phone] Pertinent lab results: No labs suggested for any medication orders signed or pended in this encounter. Refresh if any orders changed. Because this patient has not had an appointment in this department specialty in the last year and does not have one scheduled in the next 30 days , limit prescription refills to a one month supply pending provider review and/or appointment scheduling. This patient has not had an appointment in this department specialty in the last year. Review quantity recommended based on labs and time to next appointment NURSING HOME ADMINISTRATOR: Prepare the quantity needed to get to the next appointment, or 90 days if no appointment yet booked OR the quantity per the lab recommendation, WHICHEVER IS LEAST. BP Readings from Last 1 Encounters: 12/25/18 130/80 Pended medication order(s) and sent to provider. Patient expects medication renewal unless notifiedotherwise. documented in this encounter Plan of Treatment Upcoming Encounters Date Type Department Care Team (Latest Contact Info) Description 07/29/2025 11:20 AM EDT CPE - Comprehensive Physical Exam [facility] Medicine [address] [place] [phone] Eunice Wilson NP [address] [place] [phone] las cpe 10/18/21 documented as of this encounter Visit Diagnoses Diagnosis Mood disorder Unspecified episodic mood disorder documented in this encounter Care Teams Clay Stain Mixer Relationship Specialty Start Date End Date Shawn Shin MD PCP - General Internal Medicine 11/26/18 03/22/22 Curtis Godinez MD [address] [place] [phone] PCP - General 03/23/22 09/02/23 Rudy Cui MD [address] [place] [phone] PCP - General Internal Medicine 09/03/23 documented as of this encounter
== END 2024-12-26 10:31 | disposition home or self-care (01) ==
PROVIDERS: Visit Provider Physician Assistant
DX: M51.26 Other intervertebral disc displacement, lumbar region (principal)
CPT/HCPCS: 99213

== ENCOUNTER 2025-01-07 06:04 | Day surgery (SDC) | payer BC, SELFPAY ==
[2025-01-05 13:11] VITALS: BMI 24.4
--- NOTE | 2025-01-05 14:38 | HO.ANESPROP2 ---
Documented by User: Anju Carson NP 01/05/25 14:39 HPI - Anesthesia Eval Consult details Narrative: 29yo M for Left ?L5-S1 Microlumbar discectomy w/Endoscope PMFSH Active Problems Active Problems: All Active Problems Lumbar disc herniation (Acute) Past Medical History Medical History Marijuana use Vapes nicotine containing substance Wears contact lenses ADHD (attention deficit hyperactivity disorder) Depression Anxiety Pins and needles sensation Surgical History Surgical History Hx of elbow surgery (~2008) Social History Social History (Updated 01/05/25 @ 13:19 by Nena Dillon RN) Household Members: None Housing: Apartment Are you a primary pulmonary care nurse to a significant other at home: No Do you presently have visiting nurse or other home services: No Patient Tobacco Use Status: Current someday Tobacco user Frequency of e-Cigarette/Vaping Use: 3 x week Use of substances other than those prescribed or required for medical reasons: Yes Substance Use Frequency: Daily Have you been hit, kicked, punched, or otherwise hurt by someone within the past year? If so, by whom?: No Are you DNR?: No Advance Directives: No Advance Directives Information Provided: Yes Advance Directives on File: No Poor oral hygiene: No Meds Allergies Allergy/AdvReac Type Severity Reaction Status Date / Time coconut Allergy Severe Hives, Verified 01/07/25 06:14 oral swelling Home Medications ?Medication ?Instructions ?Recorded ?Confirmed ?Last Taken ?Type bupropion HCl 150 mg 24 hr tablet, 150 mg PO QAM 01/05/25 01/07/25 12/22/24 History extended release bupropion HCl 300 mg 24 hr tablet, 300 mg PO QAM 01/05/25 01/07/25 12/22/24 History extended release lisdexamfetamine 30 mg chewable 30 mg PO DAILY 01/05/25 01/07/25 12/22/24 History tablet (Vyvanse) naproxen sodium 220 mg capsule 220 mg PO Q8H PRN Pain 01/05/25 01/07/25 01/05/25 History (Aleve) ascorbic acid (vitamin C) 500 mg 500 mg PO DAILY 01/06/25 01/07/25 Unknown History tablet (Vitamin C) cholecalciferol (vitamin D3) 50 50 mcg PO DAILY 01/06/25 01/07/25 Unknown History mcg (2,000 unit) capsule (Vitamin D3) tramadol 50 mg tablet 50 mg PO TID PRN Pain 01/06/25 01/07/25 01/06/25 21:00 History vitamin B complex 1 tab PO DAILY 01/06/25 01/07/25 Unknown History Exam Height,Weight and Vital Signs: Height 6 ft Weight 81.647 kg Assessment and Plan Assessment Anesthesia Assessment: Chart Reviewed Documented by User: Patricia Hansen MD 01/07/25 07:31 [facility] Past Medical History Medical History Marijuana use Vapes nicotine containing substance Wears contact lenses ADHD (attention deficit hyperactivity disorder) Depression Anxiety Pins and needles sensation Family History Family history of problems with anesthesia: No Surgical History Surgical History Hx of elbow surgery (~2008) History of Problems with Anesthesia: No Social History Social History (Updated 01/05/25 @ 13:19 by Nena Dillon RN) Household Members: None Housing: Apartment Are you a primary pulmonary care nurse to a significant other at home: No Do you presently have visiting nurse or other home services: No Patient Tobacco Use Status: Current someday Tobacco user Frequency of e-Cigarette/Vaping Use: 3 x week Use of substances other than those prescribed or required for medical reasons: Yes Substance Use Frequency: Daily Have you been hit, kicked, punched, or otherwise hurt by someone within the past year? If so, by whom?: No Are you DNR?: No Advance Directives: No Advance Directives Information Provided: Yes Advance Directives on File: No Poor oral hygiene: No Meds Allergies Allergy/AdvReac Type Severity Reaction Status Date / Time coconut Allergy Severe Hives, Verified 01/07/25 06:14 oral swelling Home Medications ?Medication ?Instructions ?Recorded ?Confirmed ?Last Taken ?Type bupropion HCl 150 mg 24 hr tablet, 150 mg PO QAM 01/05/25 01/07/25 12/22/24 History extended release bupropion HCl 300 mg 24 hr tablet, 300 mg PO QAM 01/05/25 01/07/25 12/22/24 History extended release lisdexamfetamine 30 mg chewable 30 mg PO DAILY 01/05/25 01/07/25 12/22/24 History tablet (Vyvanse) naproxen sodium 220 mg capsule 220 mg PO Q8H PRN Pain 01/05/25 01/07/25 01/05/25 History (Aleve) ascorbic acid (vitamin C) 500 mg 500 mg PO DAILY 01/06/25 01/07/25 Unknown History tablet (Vitamin C) cholecalciferol (vitamin D3) 50 50 mcg PO DAILY 01/06/25 01/07/25 Unknown History mcg (2,000 unit) capsule (Vitamin D3) tramadol 50 mg tablet 50 mg PO TID PRN Pain 01/06/25 01/07/25 01/06/25 21:00 History vitamin B complex 1 tab PO DAILY 01/06/25 01/07/25 Unknown History Exam Airway Mallampati Class: II TM Dist: >3cm Neck ROM: Full Heart: rrr Lungs: cta Assessment and Plan Assessment Anesthesia Assessment: Anesthesia Plan Discussed Final Anesthetic Review Family History of Problems with Anesthesia: No History of Problems with Anesthesia: No NPO: Yes ASA Class: II Final Preanesthetic Review: No Changes in Pt Med Stat, Meds/Allgs Chart Reviewed and Consent Obtained/Reviewed Patient Risk: Low Procedure Risk: Intermediate Anesthetic Plan Anesthetic Plan: GA Disposition: Standard PACU
[2025-01-07] VITALS (14 sets, daily range): BP systolic 114–143; BP diastolic 66–94; PULSE 80–99; RESP 12–24; TEMP 36.2–36.9; O2SAT 97–100; BMI 23.7
--- NOTE | ~2025-01-07 | FL_ITS ---
EXAMINATION: XR FLUOROSCOPY WITH IMAGES CLINICAL INFORMATION: Left L5-S1 decompression. COMPARISON: None available. TECHNIQUE: Fluoroscopy provided to: Dr. Mackey Fluoroscopy time: 18.6 seconds DAP: [phone] Gycm2 Images: 3 FINDINGS: 3 fluoroscopic spot images obtained of the lumbar spine during left L5-S1 decompression. Please refer to the full operative report for details. FL/FL guidance in OR IMPRESSION: Fluoroscopic guidance. Electronically signed by: Darian Mario MD 01/07/2025 10:53 AM EDT
[2025-01-07] MEDS: Lactated Ringers 1,000 ML 100 ML IVCONT (06:44)
--- NOTE | 2025-01-07 06:59 | P.HPSUR_ITS ---
Pre-Procedural Eval Section A - 24 Hr Update-Section A only Date of Service: 01/07/25 Section B - Complete if H&P > 30 days Chief Complaint: Other intervertebral disc displacement, lumbar Allergies: Allergies Allergy/AdvReac Type Severity Reaction Status Date / Time coconut Allergy Severe Hives, Verified 01/07/25 06:14 oral swelling Review of Systems Sugical H&P ROS: Negative: Constitution, Cardiovascular, Respiratory, Neurological, Psychiatric, Hem-Onc, Allergic/Immunologic, Gastrointestinal, Genitourinary, Musculoskeletal, Integumentary, Endocrine and Eyes/Ears /Nose/Throat Exam Surgical H&P Exam: Not Evaluated: HEENT, Not Evaluated: Heart, Not Evaluated: Lungs, Not Evaluated: Extremities, Not Evaluated: Abdomen, Not Evaluated: Skin and Not Evaluated: Neurological Exam Comment: The patient is awake, alert, no acute distress. Proposed surgical incision site is clean, dry, no signs of recent trauma. Plan Diagnosis/Plan: Unchanged I have reviewed the history and physical and performed a pertinent physical examination on my patient. No changes have occurred unless specified. Plan remains the same, Left L5-S1 microdiscectomy Time Spent With Patient Time: Total time managing care of this patient today _6___ minutes.
--- NOTE | 2025-01-07 10:35 | P.OP_ITS ---
Operative Note Operative Note Date of Service: 01/07/25 Narrative: Preoperative diagnosis: Left S1 radiculopathy due to disc herniation Postoperative diagnosis: Same Procedure: Left L5-S1 microdiskectomy with microscope Surgeon: Cheng Mackey MD, PhD [employer] Specialist: ROLY Lowery This 29-year-old male was presenting with severe left leg pain and mild footdrop.MRI shows disc herniation L5-S1 compressing the left S1 nerve root. The patient was offered a lumbar microdiskectomy to decompress the nerve root. The procedure complications were explained. The patient was consented. The patient was brought to the operating room and endotracheally intubated. The patient was turned in a prone position on the Ramin frame. Prepping and draping was done followed by time-out. Initially the plan was to do the procedure through a camera. And 1/2 inches incision was made. A dilator was advanced and docked just inferior from the L5 lamina on the flavum ligament. Under direct vision in the soft tissue was removed to expose the flavum ligament. The flavum ligament was opened and the nerve root was identified. I tried to advance the cannula with the L5 lamina prevented me to get to the correct spot. In other words I just ended up just below the L5-S1 disc space a nd I was unable to perform the diskectomy this way. Therefore, we converted to microscopic microdiskectomy. A mid lumbar incision was made followed by release of the paravertebral muscles on the left side to expose the L5-S1 interspace. An intraoperative x-rays obtained to confirm the correct level. The microscope was brought in. A L5 laminotomy was done followed by opening of the flavum ligam ent. The S1 nerve root was identified and retracted medially to expose the L5- S1 disc space. The nerve root was inflamed. I could palpate a disc herniation medial from the S1 nerve root, which I carefully removed with a pituitary. The disc space was inspected and any residual disc fragments were removed. This resulted in an excellent decompression of the S1 nerve root. Hemostasis was done. The microscope was removed. Marcaine was injected intramuscularly.The incision was closed in two layers. Steri-Strips used to approximate the incision. An op-site were taken there was used to cover the incision. All sponge and needle counts were correct. Patient was extubated and transported in stable condition to recovery room. this procedure was done with the aid of a physician food and beverage assistant who performed the initial exposure until the microscope was brought in and performed the closure of the incision. Anesthesia: General Blood loss: 10 mL Complications: None Specimen: None Surgical time: 2 hours 45 minutes Disposition: Discharge home
--- NOTE | 2025-01-07 10:47 | P.DS_ITS ---
DS: Providers Provider Date of Service: 01/07/25 Date of discharge: 01/07/25 Primary care physician: Unknown Physician DS: Summary Time Attestation Discharge Coordination Time (in mins): 12 Quality: Safe Use of Opioids Does Pt have an Active Cancer Diagnosis on the Problem List?: No Quality: Stroke Does the patient have a stroke diagnosis?: No Physical Exam Vital Signs: Vital Signs: Last Vital Signs Temp 98.4 F 01/07/25 06:24 Pulse 86 01/07/25 06:24 Resp 17 01/07/25 06:24 BP 142/85 H 01/07/25 06:24 Pulse Ox 99 01/07/25 06:24 O2 Del Method Room Air 01/07/25 06:24 BMI result Body Mass Index 23.7 Discharge Plan Discharge Patient Disposition: Home, Self-Care Referrals: Physician,Unknown J [Primary Care Provider, Medical] - 1 Week Discharge Medications: New oxycodone 5 mg tablet 5 mg PO Q6H PRN (Reason: pain) Qty: 20 0RF Rx Instructions: Partial Fill upon patient request. Continued naproxen sodium [Aleve] 220 mg Capsule 220 mg PO Q8H PRN (Reason: Pain) bupropion HCl 300 mg tablet extended release 24 hr 300 mg PO QAM bupropion HCl 150 mg tablet extended release 24 hr 150 mg PO QAM lisdexamfetamine [Vyvanse] 30 mg Tablet,Chewable 30 mg PO DAILY ascorbic acid (vitamin C) [Vitamin C] 500 mg Tablet 500 mg PO DAILY vitamin B complex Tablet 1 tab PO DAILY cholecalciferol (vitamin D3) [Vitamin D3] 50 mcg (2,000 unit) Capsule 50 mcg PO DAILY Held tramadol 50 mg tablet 50 mg PO TID PRN (Reason: Pain) Hold Instructions: Resume on 02/06/25. Discharge Orders: Discharge Order (Routine); Ordered 01/07/25 Ordered By: Myron Fletcher Diet: Advance to usual diet Activity on Discharge: As tolerated Activity Restrictions/Additional Instructions: After your spinal surgery we ask you to observe the following restrictions/guidelines: Activity: It is normal to feel some discomfort as you increase your activity, but that will improve with time. We ask you avoid heavy lifting or acitivities that cause pain. As a general rule, 8lbs is a safe limit for lifting right after surgery. Walk as much as you feel comfortable but not to exhaustion. You will feel extra tired the first few days after surgery. Stay well hydrated. It is OK to walk up and down stairs You may return to driving when you are off narcotics (such as vicodin, oxycodone, dilaudid, etc), and you are back to normal functional capacity. If you have any concerns please check with office before driving. Return to work is specific to each patient and each surgery, so please speak with your doctor/PA at first follow up. Please bring paperwork such as FMLA at that time if you need it filled out. Medications: We recommend you take 1,000mg Tylenol every 8 hours for the first few weeks after surgery, if you do not have any liver issues and can tolerate this medication. Do not exceed 4,000mg daily. We will give you a short supply of narcotics after surgery (usually one weeks worth). If you need more please call the office but do not use more than prescribed. You will need to give our office 48 hours notice if you need narcotics refilled and we do not fill narcotics on weekends or evenings. If you are on a narcotic, it is a good idea to take a stool softener such as colace or senna to avoid constipation If you take blood thinner such as aspirin, Plavix, Coumadin, Effient, Eliquis etc for conditions such as Afib, DVT, Pulmonary embolus, coronary disease, stents etc please speak with your surgeon about specific details as to when you can resume these medications. You can resume NSAIDs on post op day 1 (eg: Motrin, Naproxen, etc). Follow up: Please call the office, , after surgery to arrange a 3 week follow up for wound check. Wound Care: You may remove your dressing on the first day after surgery. ?You may ?leave open to air. Please do not remove the steri strips underneath. they will fall off on their own in one week. IT IS NORMAL FOR THE WOUND TO OOZE OR BE BLOODY FOR A FEW DAYS AFTER SURGERY. ?IF THIS HAPPENS JUST PLACE NEW DRESSING OVER IT TO AVOID STAINING CLOTHES. You may shower on post op day # 1 We ask that you do not let the water soak the wound. If it does get wet, just towel dry lightly. Please do not scrub your incision or place any type of chemical/ointment on the wound. No tub baths, pools or jacuzzis for one month. If you have any leaking or redness from your wound, or fevers, please call the office. Print Language: Turkmen
== END 2025-01-07 14:59 | disposition home or self-care (01) ==
PROVIDERS: Visit Provider Neurological Surgery
PROC: (CPT 63030; principal; 2025-01-07 07:30)
DX: M51.16 Intervertebral disc disorders with radiculopathy, lumbar region (principal); M79.605 Pain in left leg; M21.372 Foot drop, left foot; Z91.018 Allergy to other foods
CPT/HCPCS: 63030; J0131; J0690; J1171; J1630; J1885; J2003; J2250; J2405; J2704; J3010

== ENCOUNTER → 2025-01-07 06:04 | Outpatient (BNV) | payer BC, SELFPAY | PROVIDERS: Visit Provider Neurological Surgery | DX: M51.16 Intervertebral disc disorders with radiculopathy, lumbar region (principal) | CPT/HCPCS: 63030; 99499 ==